=== PATIENT | female | born 1995 | race Caucasian/White ===

== ENCOUNTER → 2017-08-13 | Outpatient (REF) | payer BC, OTHER ==
[2017-08-13 15:07] LABS: APPEARANCE, URINE CLEAR (CLEAR); BACTERIA, URINE AUTO NEGATIVE (NEGATIVE); BILIRUBIN, URINE AUTO NEGATIVE (NEGATIVE); BLOOD, URINE BLOOD NEGATIVE (NEGATIVE); COLOR, URINE STRAW (YELLOW); GLUCOSE, URINE (UA) AUTO NEGATIVE (NEGATIVE); KETONE, URINE AUTO NEGATIVE (NEGATIVE); LEUKOCYTE ESTERASE, URINE AUTO NEGATIVE (NEGATIVE); NITRITE, URINE AUTO NEGATIVE (NEGATIVE); PROTEIN, URINE AUTO NEGATIVE (NEGATIVE); RBC, URINE AUTO 0 /HPF (0-3); SPECIFIC GRAVITY URINE AUTO 1.004 (1.002-1.035); SQUAMOUS EPITHELIAL CELL UR AU 1 /HPF (0-6); UROBILINOGEN, URINE AUTO 0.2 mg/dL (0.0-2.0); WBC, URINE AUTO 0 /HPF (0-3)
== END ==
LOC: M LAB REF 14:46
DX: N39.0 Urinary tract infection, site not specified (principal)
CPT/HCPCS: 81001

== ENCOUNTER → 2017-12-14 | Outpatient (REF) | payer OTHER ==
[2017-12-14 14:30] LABS: APPEARANCE, URINE CLEAR (CLEAR); BACTERIA, URINE AUTO NEGATIVE (NEGATIVE); BILIRUBIN, URINE AUTO NEGATIVE (NEGATIVE); BLOOD, URINE BLOOD NEGATIVE (NEGATIVE); COLOR, URINE STRAW (YELLOW); GLUCOSE, URINE (UA) AUTO NEGATIVE (NEGATIVE); KETONE, URINE AUTO NEGATIVE (NEGATIVE); LEUKOCYTE ESTERASE, URINE AUTO NEGATIVE (NEGATIVE); NITRITE, URINE AUTO NEGATIVE (NEGATIVE); PROTEIN, URINE AUTO NEGATIVE (NEGATIVE); RBC, URINE AUTO 0 /HPF (0-3); SPECIFIC GRAVITY URINE AUTO 1.001 (1.002-1.035); SQUAMOUS EPITHELIAL CELL UR AU 0 /HPF (0-6); UROBILINOGEN, URINE AUTO 0.2 mg/dL (0.0-2.0); WBC, URINE AUTO 0 /HPF (0-3)
== END ==
LOC: M LAB REF 12:59
DX: N39.0 Urinary tract infection, site not specified (principal)

== ENCOUNTER → 2018-02-12 | Outpatient (REF) | payer OTHER ==
[2018-02-12 18:36] LABS: APPEARANCE, URINE HAZY (CLEAR); BACTERIA, URINE AUTO 1+ (NEGATIVE); BILIRUBIN, URINE AUTO NEGATIVE (NEGATIVE); BLOOD, URINE BLOOD 1+ (NEGATIVE); COLOR, URINE YELLOW (YELLOW); GLUCOSE, URINE (UA) AUTO NEGATIVE (NEGATIVE); KETONE, URINE AUTO NEGATIVE (NEGATIVE); LEUKOCYTE ESTERASE, URINE AUTO 3+ (NEGATIVE); NITRITE, URINE AUTO NEGATIVE (NEGATIVE); PROTEIN, URINE AUTO NEGATIVE (NEGATIVE); RBC, URINE AUTO 2 /HPF (0-3); SPECIFIC GRAVITY URINE AUTO 1.001 (1.002-1.035); SQUAMOUS EPITHELIAL CELL UR AU 0 /HPF (0-6); UROBILINOGEN, URINE AUTO 0.2 mg/dL (0.0-2.0); WBC, URINE AUTO 27 /HPF (0-3)
== END ==
LOC: M LAB REF 16:39
DX: N39.0 Urinary tract infection, site not specified (principal)

== ENCOUNTER 2018-02-24 20:09 | Emergency (ER) | payer BC, OTHER ==
[2018-02-24 20:49] LABS: BASO # 0.1 10^3/uL (0.0-0.2); BASO % 0.6 % (0.0-1.0); EOS # 0.2 10^3/uL (0.0-0.50); EOS % 1.8 % (0.0-3.0); HEMATOCRIT 41.8 % (36.0-47.0); HEMOGLOBIN 13.7 g/dl (12.0-15.5); IMMATURE GRANULOCYTE % 0.3 % (0-3.0); LYMPH # 2.7 10^3/uL (1.5-6.5); LYMPH % 24.5 % (24.0-44.0); MEAN CORPUSCULAR HGB CONC 32.8 g/dl (32.0-36.5); MEAN CORPUSCULAR VOLUME 88.6 fl (80.0-96.0); MONO # 0.8 10^3/uL (0.0-0.8); MONO % 6.8 % (0.0-5.0); NEUTROPHILS # 7.4 10^3/uL (1.8-7.7); PLATELET COUNT, AUTOMATED 436 10^3/uL (150-450); RED BLOOD COUNT 4.72 10^6/uL (4.00-5.40); RED CELL DISTRIBUTION WIDTH 11.6 % (11.5-14.5); WHITE BLOOD COUNT 11.2 10^3/uL (4.0-10.0)
[2018-02-24 20:55] LABS: KETONE, URINE AUTO RFX NEGATIVE (NEGATIVE); LEUKOCYTE ESTERASE UR AUTO RFX NEGATIVE (NEGATIVE); MUCUS, URINE RFX SMALL (NEGATIVE); NITRITE, URINE AUTO RFX NEGATIVE (NEGATIVE); RBC, URINE AUTO RFX 1 /HPF (0-3); SPECIFIC GRAVITY UR AUTO RFX 1.009 (1.002-1.035); SQUAM EPITHELIAL CELL UR AURFX 1 /HPF (0-6); WBC, URINE AUTO RFX 0 /HPF (0-3)
[2018-02-24 21:06] LABS: CONTROL LINE HCG INT CTR LINE PRESENT; HCG, SERUM QUALITATIVE NEGATIVE (NEGATIVE)
[2018-02-24 21:12] LABS: ANION GAP 8 MEQ/L (8-16); BLOOD UREA NITROGEN 5 MG/DL (7-18); CALCIUM LEVEL 9.8 MG/DL (8.5-10.1); CARBON DIOXIDE LEVEL 27 MEQ/L (21-32); CHLORIDE LEVEL 106 MEQ/L (98-107); CREATININE FOR GFR 0.72 MG/DL (0.55-1.30); GLOMERULAR FILTRATION RATE > 60.0 (>60); GLUCOSE, FASTING 102 MG/DL (70-100); POTASSIUM SERUM 4.1 MEQ/L (3.5-5.1); SODIUM LEVEL 141 MEQ/L (136-145)
[2018-02-24] MEDS: NS 1,000 ML IV (21:29)
[2018-02-24] MEDS: ONDANSETRON 4MG/2ML VIAL (J2405) IV (21:29)
== END 2018-02-24 22:16 | disposition home or self-care (01) ==
LOC: M ED 20:09
DX: R11.0 Nausea (principal); R19.7 Diarrhea, unspecified; Z87.448 Personal history of other diseases of urinary system
CPT/HCPCS: J2405

== ENCOUNTER → 2018-02-25 | Outpatient (REF) | payer OTHER | LOC: M LAB REF 09:54 | DX: R19.7 Diarrhea, unspecified (principal) ==

== ENCOUNTER → 2018-03-25 | Outpatient (CLI) | payer BC, OTHER | LOC: M RAD 07:37 | DX: N30.90 Cystitis, unspecified without hematuria (principal) | CPT/HCPCS: 76775 ==

== ENCOUNTER → 2018-03-28 | Outpatient (REF) | payer OTHER | LOC: M SFHCCAPE 10:35 | DX: R19.7 Diarrhea, unspecified (principal) ==

== ENCOUNTER 2018-04-20 13:25 | Emergency (ER) | payer BC, OTHER ==
[~2018-04-20] VITALS: Ht 167.6 cm; Wt 72.7 kg
[~2018-04-20 13:25] MED LIST: FLAG500T PO; HYDR1SOL PO; TRINTAB PO; ZOFR4TAB14 PO
[2018-04-20] MEDS ORDERED: VANC250C2 (13:31)
[2018-04-20] MEDS ORDERED: NS 1,000 ML IV ONE (14:30)
[2018-04-20] MEDS ORDERED: METOCLOPRAMIDE INJ 10MG/2ML VIAL (J2765) IV ONE (14:30)
[2018-04-20 14:49] LABS: BASO # 0.1 10^3/uL (0.0-0.2); BASO % 0.8 % (0.0-1.0); EOS # 0.1 10^3/uL (0.0-0.50); EOS % 0.9 % (0.0-3.0); HEMATOCRIT 36.2 % (36.0-47.0); HEMOGLOBIN 12.1 g/dl (12.0-15.5); LYMPH # 2.2 10^3/uL (1.5-6.5); LYMPH % 33.6 % (24.0-44.0); MEAN CORPUSCULAR HEMOGLOBIN 29.8 pg (27.0-33.0); MEAN CORPUSCULAR HGB CONC 33.4 g/dl (32.0-36.5); MEAN CORPUSCULAR VOLUME 89.2 fl (80.0-96.0); MONO # 0.6 10^3/uL (0.0-0.8); MONO % 8.5 % (0.0-5.0); NEUTROPHILS # 3.6 10^3/uL (1.8-7.7); NEUTROPHILS % 55.9 % (36.0-66.0); PLATELET COUNT, AUTOMATED 364 10^3/uL (150-450); RED BLOOD COUNT 4.06 10^6/uL (4.00-5.40); WHITE BLOOD COUNT 6.5 10^3/uL (4.0-10.0)
[2018-04-20] MEDS: GASTROGRAFIN SOLUTION 30ML PO SCH ×2 (15:01→15:15)
[2018-04-20 15:18] LABS: ALBUMIN 4.2 GM/DL (3.2-5.2); ALT/SGPT 30 U/L (12-78); BILIRUBIN,TOTAL 0.3 MG/DL (0.2-1.0); BLOOD UREA NITROGEN 9 MG/DL (7-18); C REACTIVE PROTEIN QUANTITATIV 1.27 MG/DL (0.00-0.30); CALCIUM LEVEL 9.2 MG/DL (8.5-10.1); CARBON DIOXIDE LEVEL 29 MEQ/L (21-32); CHLORIDE LEVEL 105 MEQ/L (98-107); CREATININE FOR GFR 0.72 MG/DL (0.55-1.30); GLOMERULAR FILTRATION RATE > 60.0 (>60); GLUCOSE, FASTING 71 MG/DL (70-100); LIPASE 91 U/L (73-393); POTASSIUM SERUM 3.8 MEQ/L (3.5-5.1); SODIUM LEVEL 139 MEQ/L (136-145); TOTAL PROTEIN 7.8 GM/DL (6.4-8.2)
[2018-04-20] MEDS ORDERED: ISOVUE-370 76% 100ML VIAL (Q9967) As Ordered ONE (16:05)
--- NOTE | 2018-04-20 16:59 | REP ---
Clinical: Lower abdominal pain. Technique: Axial contrast enhanced images from the lung bases to the pubic symphysis using oral (per protocol) and 100 ml Isovue 370 intravenous contrast material. Findings: Lung bases are clear. Visualized heart and pericardium normal. Liver, spleen, pancreas, gallbladder, bilateral adrenal glands and kidneys are normal. The enteric system is without obstruction or acute inflammatory process. The appendix is identified and measures up to 6 mm which is within normal range. Pelvis demonstrates normal bladder and age-appropriate uterus/adnexa. No ascites. No free air. No adenopathy. Abdominal aorta and vasculature appears normal. Musculoskeletal structures are intact. Impression: No obvious acute abdominopelvic pathology appreciated. Electronically Signed by Clifton Nation MD 04/20/2018 04:51 P
[2018-04-20 17:03] LABS: URINE PREG TEST NEGATIVE (NEGATIVE)
[2018-04-20 17:04] LABS: APPEARANCE, URINE CLEAR (CLEAR); BACTERIA, URINE AUTO NEGATIVE (NEGATIVE); BILIRUBIN, URINE AUTO NEGATIVE (NEGATIVE); BLOOD, URINE BLOOD NEGATIVE (NEGATIVE); COLOR, URINE COLORLESS (YELLOW); GLUCOSE, URINE (UA) AUTO NEGATIVE (NEGATIVE); KETONE, URINE AUTO NEGATIVE (NEGATIVE); LEUKOCYTE ESTERASE, URINE AUTO NEGATIVE (NEGATIVE); NITRITE, URINE AUTO NEGATIVE (NEGATIVE); PROTEIN, URINE AUTO NEGATIVE (NEGATIVE); RBC, URINE AUTO 1 /HPF (0-3); SPECIFIC GRAVITY URINE AUTO 1.025 (1.002-1.035); SQUAMOUS EPITHELIAL CELL UR AU 0 /HPF (0-6); UROBILINOGEN, URINE AUTO 0.2 mg/dL (0.0-2.0); WBC, URINE AUTO 0 /HPF (0-3)
[2018-04-20] MEDS ORDERED: DIFI200T PO (17:18)
[2018-04-20 17:40] VITALS: BP 116/57
== END 2018-04-20 17:43 | disposition home or self-care (01) ==
LOC: M ED 13:25
DX: A04.71 Enterocolitis due to Clostridium difficile, recurrent (principal); Z86.19 Personal history of other infectious and parasitic diseases
CPT/HCPCS: 36415; 74177; 80053; 81001; 81025; 83690; 84703; 85025; 86140; 87507; 96374; 99284; J2765; Q9963; Q9967

== ENCOUNTER → 2018-05-08 | Outpatient (REF) | payer OTHER ==
[~2018-05-08] MED LIST changes: +DIFI200T PO; +VANC250C2
== END ==
LOC: M SFHCADAM 10:45
PROVIDERS: ATTEND Physician Assistant
DX: A04.71 Enterocolitis due to Clostridium difficile, recurrent (principal)

== ENCOUNTER → 2018-06-06 | Outpatient (REF) | payer OTHER ==
[2018-06-06 14:17] LABS: CHLAMYDIA DNA AMPLIFICATION NEGATIVE (NEGATIVE); GC DNA AMPLIFICATION NEGATIVE (NEGATIVE)
[2018-06-12 19:10] LABS: HPV LOW VOL RFLX Negative (Negative)
== END ==
LOC: M SFHCADAM 12:17
PROVIDERS: ATTEND Physician Assistant
DX: Z11.8 Encounter for screening for other infectious and parasitic diseases (principal); Z12.4 Encounter for screening for malignant neoplasm of cervix
CPT/HCPCS: 87491; 87591; 87624; G0123

== ENCOUNTER → 2019-06-08 | Outpatient (REF) | payer BC, OTHER ==
[~2019-06-08] MED LIST changes: -VANC250C2; +VANC250C3
[2019-06-08 12:25] LABS: INFLUENZA A AMPLIFICATION NEGATIVE (NEGATIVE); INFLUENZA B AMPLIFICATION NEGATIVE (NEGATIVE)
== END ==
LOC: M LAB REF 10:30
PROVIDERS: ATTEND Physician Assistant Medical
DX: R50.9 Fever, unspecified (principal)

== ENCOUNTER → 2019-07-01 | Outpatient (REF) | payer OTHER ==
[2019-07-01 13:46] LABS: BASO % 0.4 % (0.0-1.0); EOS # 0.1 10^3/uL (0.0-0.5); EOS % 0.6 % (0.0-3.0); HEMATOCRIT 40.7 % (36.0-47.0); HEMOGLOBIN 13.3 g/dl (12.0-15.5); LYMPH # 2.5 10^3/uL (1.5-5.0); LYMPH % 24.1 % (24.0-44.0); MEAN CORPUSCULAR HEMOGLOBIN 29.7 pg (27.0-33.0); MEAN CORPUSCULAR HGB CONC 32.7 g/dl (32.0-36.5); MEAN CORPUSCULAR VOLUME 90.8 fl (80.0-96.0); MONO # 0.5 10^3/uL (0.0-0.8); MONO % 5.2 % (0.0-5.0); NEUTROPHILS # 7.2 10^3/uL (1.5-8.5); NEUTROPHILS % 69.4 % (36.0-66.0); PLATELET COUNT, AUTOMATED 463 10^3/uL (150-450); RED BLOOD COUNT 4.48 10^6/uL (4.00-5.40); WHITE BLOOD COUNT 10.4 10^3/uL (4.0-10.0)
[2019-07-01 14:23] LABS: ALBUMIN 4.1 GM/DL (3.2-5.2); ALT/SGPT 25 U/L (12-78); BILIRUBIN,TOTAL 0.4 MG/DL (0.2-1.0); BLOOD UREA NITROGEN 6 MG/DL (7-18); CALCIUM LEVEL 9.7 MG/DL (8.5-10.1); CARBON DIOXIDE LEVEL 26 MEQ/L (21-32); CHLORIDE LEVEL 106 MEQ/L (98-107); CREATININE FOR GFR 0.61 MG/DL (0.55-1.30); GLOMERULAR FILTRATION RATE > 60.0 (>60); GLUCOSE, FASTING 86 MG/DL (70-100); POTASSIUM SERUM 4.7 MEQ/L (3.5-5.1); SODIUM LEVEL 138 MEQ/L (136-145); TOTAL PROTEIN 8.1 GM/DL (6.4-8.2)
== END ==
LOC: M SFHCADAM 11:42
PROVIDERS: ATTEND Physician Assistant
DX: R21 Rash and other nonspecific skin eruption (principal)

== ENCOUNTER → 2019-07-14 | Outpatient (REF) | payer OTHER ==
[2019-07-14 11:53] LABS: HEMATOCRIT 40.9 % (36.0-47.0); HEMOGLOBIN 13.4 g/dl (12.0-15.5); MEAN CORPUSCULAR HEMOGLOBIN 29.5 pg (27.0-33.0); MEAN CORPUSCULAR HGB CONC 32.8 g/dl (32.0-36.5); MEAN CORPUSCULAR VOLUME 89.9 fl (80.0-96.0); PLATELET COUNT, AUTOMATED 425 10^3/uL (150-450); RED BLOOD COUNT 4.55 10^6/uL (4.00-5.40); WHITE BLOOD COUNT 10.1 10^3/uL (4.0-10.0)
[2019-07-14 12:46] LABS: HEPATITIS B SURFACE ANTIGEN NEGATIVE (NEGATIVE); HEPATITIS C VIRUS ABY INDEX 0.1 INDEX (<0.8); HIV 1&2 SCREEN CENTAUR NEGATIVE (NEGATIVE); RUBELLA IgG QUALITATIVE IMMUNE (IMMUNE)
[2019-07-14 14:40] LABS: CHLAMYDIA DNA AMPLIFICATION NEGATIVE (NEGATIVE); GC DNA AMPLIFICATION NEGATIVE (NEGATIVE)
== END ==
LOC: M PLALAB 10:20
PROVIDERS: ATTEND Advanced Practice Midwife
DX: Z34.01 Encounter for supervision of normal first pregnancy, first trimester (principal)

== ENCOUNTER 2019-08-09 20:31 | Observation (INO) | payer BC, OTHER ==
[~2019-08-09] VITALS: Ht 167.6 cm; Wt 83.8 kg
[2019-08-09] MEDS ORDERED: MULTTAB20 PO (20:46)
[2019-08-09 21:40] LABS: BASO # 0.1 10^3/uL (0.0-0.2); BASO % 0.6 % (0.0-1.0); EOS # 0.2 10^3/uL (0.0-0.5); EOS % 1.8 % (0.0-3.0); HEMATOCRIT 40.8 % (36.0-47.0); HEMOGLOBIN 13.4 g/dl (12.0-15.5); LYMPH # 3.1 10^3/uL (1.5-5.0); LYMPH % 30.6 % (24.0-44.0); MEAN CORPUSCULAR HEMOGLOBIN 29.5 pg (27.0-33.0); MEAN CORPUSCULAR HGB CONC 32.8 g/dl (32.0-36.5); MEAN CORPUSCULAR VOLUME 89.9 fl (80.0-96.0); MONO # 0.5 10^3/uL (0.0-0.8); MONO % 5.2 % (0.0-5.0); NEUTROPHILS # 6.2 10^3/uL (1.5-8.5); NEUTROPHILS % 61.5 % (36.0-66.0); PLATELET COUNT, AUTOMATED 378 10^3/uL (150-450); RED BLOOD COUNT 4.54 10^6/uL (4.00-5.40); WHITE BLOOD COUNT 10.1 10^3/uL (4.0-10.0)
[2019-08-09] MEDS ORDERED: NS 1,000 ML IV ONE ×2 (22:00→22:08)
[2019-08-09 22:05] LABS: BLOOD UREA NITROGEN 9 MG/DL (7-18); CALCIUM LEVEL 9.7 MG/DL (8.5-10.1); CARBON DIOXIDE LEVEL 27 MEQ/L (21-32); CHLORIDE LEVEL 106 MEQ/L (98-107); CREATININE FOR GFR 0.61 MG/DL (0.55-1.30); GLOMERULAR FILTRATION RATE > 60.0 (>60); GLUCOSE, FASTING 96 MG/DL (70-100); HCG, SERUM QUANTITATIVE 1965 MIU/ML; POTASSIUM SERUM 4.2 MEQ/L (3.5-5.1); SODIUM LEVEL 138 MEQ/L (136-145)
--- NOTE | 2019-08-09 22:15 | REPVR ---
PROCEDURE INFORMATION: Exam: US First Trimester, Transabdominal Exam date and time: 08/09/2019 8:58 PM Age: 24 years old Clinical indication: Lmp or gestational age (in weeks): 12; Other: Vag bleeding; ; Additional info: Vaginal bleeding TECHNIQUE: Imaging protocol: Real-time transabdominal obstetrical ultrasound of the maternal pelvis and a first trimester , less than 14 weeks 0 days, with image documentation. COMPARISON: No relevant prior studies available. FINDINGS: GESTATION: Gestation: See "Uterus" finding. MATERNAL: Uterus: The uterus measures 8.0 cm in its cephalocaudad dimension and 4.5 x 4.7 cm in its AP and lateral dimensions transabdominal. The endometrium is heterogeneous and measures 12 mm. No intrauterine gestational sac. Cervix: Unremarkable. Right adnexa: The right ovary measures 2.6 x 1.4 x 3.0 cm and demonstrates normal blood flow. Left adnexa: The left ovary measures 2.4 x 2.0 x 1.3 cm and demonstrates normal blood flow. Intraperitoneal: No intraperitoneal free fluid. IMPRESSION: 1. No intrauterine gestational sac is identified. Findings may reflect recent spontaneous AB. Ectopic is not excluded. Serial beta hCG levels may be of benefit for further evaluation. The endometrium is heterogeneous and within normal limits for thickness measuring 12 mm. 2. Otherwise negative pelvic sonogram. Electronically signed by: Jared Stearns On 08/09/2019 22:15:30 PM
[2019-08-09 22:57] LABS: HEMATOCRIT 35.9 % (36.0-47.0); HEMOGLOBIN 11.7 g/dl (12.0-15.5)
[2019-08-10 02:48] LABS: HEMATOCRIT 35.4 % (36.0-47.0); HEMOGLOBIN 12.1 g/dl (12.0-15.5)
[2019-08-10 03:00] VITALS: BP 130/77
[2019-08-10] MEDS ORDERED: LR 1,000 ML IV SCH (04:30)
[2019-08-10 06:28] LABS: HEMATOCRIT 33.2 % (36.0-47.0); MEAN CORPUSCULAR HEMOGLOBIN 29.9 pg (27.0-33.0); MEAN CORPUSCULAR HGB CONC 33.1 g/dl (32.0-36.5); MEAN CORPUSCULAR VOLUME 90.2 fl (80.0-96.0); PLATELET COUNT, AUTOMATED 318 10^3/uL (150-450); RED BLOOD COUNT 3.68 10^6/uL (4.00-5.40); WHITE BLOOD COUNT 10.9 10^3/uL (4.0-10.0)
[2019-08-10 08:00] VITALS: BP 117/60
--- NOTE | 2019-08-10 09:38 | HPEPDOC ---
General Date of Admission Aug 10, 2019 at 01:10 Date of Service: Aug 10, 2019 Attending Physician: WILLIAM ESCALANTE MD. Chief Complaint The patient is a 24-year-old female admitted who presented at 11 weeks with heavy vaginal bleeding, was diagnosed with a complete and was admitted for observation Source: Patient Exam Limitations: No limitations History of Present Illness Reason 24-year-old 1 who presented from the ER with heavy vaginal bleeding. She was evaluated and was noted to have a empty uterus and moderate a mount of vaginal bleeding.Consulting and during my evaluation, there is large amounts tissue cervical os which was removed and sent to pathology. There was minimal bleeding following removal of this tissue. Patient was orthostatic, and for that reason was admitted overnight for observation. Home Medications Scheduled No122/Iron/Folic Acid ( Multi Tablet) 1 Each Tablet, 1 TAB PO DAILY, (Reported) Allergies Coded Allergies: No Known Allergies (Unverified , 08/09/19) Family History Significant Family History: Asthma, Diabetes, Hypertension Social History * Smoker: Denies Alcohol: Denies Psychosocial History: No pertinent psych hx A-FIB/CHADSVASC A-FIB History Current/History of A-Fib/PAF?: No Current PO Anticoag Therapy: No Physical Examination Other physical findings Pelvic exam large amounts of clot which was removed from the vaginal vault was approximately 3 cm tissue cervical os which was teased and removed. No further bleeding Vital Signs Vital Signs Date Time Temp Pulse Resp B/P (MAP) Pulse Ox O2 Delivery O2 Flow Rate FiO2 08/10/19 08:00 98.0 108 16 117/60 (79) 98 Room Air Laboratory Data Labs 24H Laboratory Tests 2 08/09/19 21:12: Immature Granulocyte % (Auto) 0.3, Neutrophils (%) (Auto) 61.5, Lymphocytes (%) (Auto) 30.6, Monocytes (%) (Auto) 5.2H, Eosinophils (%) (Auto) 1.8, Basophils (%) (Auto) 0.6, Neutrophils # (Auto) 6.2, Lymphocytes # (Auto) 3.1, Monocytes # (Auto) 0.5, Eosinophils # (Auto) 0.2, Basophils # (Auto) 0.1, Nucleated Red Blood Cells % (auto) 0.0, Anion Gap 5L, Glomerular Filtration Rate > 60.0, Calcium Level 9.7, Human Chorionic Gonadotropin, Quant 1965 08/09/19 21:19: Urine Color COLORLESS, Urine Appearance CLEAR, Urine pH 6.0, Urine Specific [place] 1.001L, Urine Protein NEGATIVE, Urine Glucose (UA) NEGATIVE, Urine Ketones NEGATIVE, Urine Blood 3+H, Urine Nitrite NEGATIVE, Urine Bilirubin N EGATIVE, Urine Urobilinogen 0.2, Urine Leukocyte Esterase NEGATIVE, Urine WBC (Auto) 0, Urine RBC (Auto) 1, Urine Hyaline Casts (Auto) 0, Urine Bacteria (Auto) NEGATIVE, Urine Squamous Epithelial Cells 0, Urine Sperm (Auto) 08/10/19 05:56: Nucleated Red Blood Cells % (auto) 0.0 CBC/BMP Laboratory Tests 08/09/19 21:12 08/09/19 22:52 08/10/19 02:43 08/10/19 05:56 Assessment/Plan 22-year-old 1, status post complete . Admitted for observation secondary to orthostatic following Plan / VTE VTE Prophylaxis Ordered?: No Plan IVF: Continue Diet: Continue Current Activity: Encourage Ambulation WILLIAM ESCALANTE MD. Aug 10, 2019 09:38
== END 2019-08-10 10:45 | disposition home or self-care (01) ==
LOC: M ED 20:31 → M ED INP 08-10 01:10 → ENRESERV 08-10 02:03 → M OBS 08-10 02:45
PROVIDERS: ADMIT Obstetrics & Gynecology; ATTEND Obstetrics & Gynecology
DX: O03.9 Complete or unspecified spontaneous abortion without complication (principal); I95.9 Hypotension, unspecified
CPT/HCPCS: 36415; 36430; 76801; 80048; 81001; 84702; 85014; 85018; 85025; 85027; 86850; 86900; 86901; 86920; 88305; 93041; 99285; P9016

== ENCOUNTER → 2019-08-19 | Outpatient (REF) | payer OTHER ==
[~2019-08-19] MED LIST changes: +MULTTAB20 PO
[2019-08-19 12:45] LABS: BASO % 0.5 % (0.0-1.0); EOS # 0.1 10^3/uL (0.0-0.5); EOS % 1.9 % (0.0-3.0); HEMATOCRIT 36.8 % (36.0-47.0); HEMOGLOBIN 12.4 g/dl (12.0-15.5); LYMPH # 2.2 10^3/uL (1.5-5.0); LYMPH % 30.6 % (24.0-44.0); MEAN CORPUSCULAR HEMOGLOBIN 30.7 pg (27.0-33.0); MEAN CORPUSCULAR HGB CONC 33.7 g/dl (32.0-36.5); MEAN CORPUSCULAR VOLUME 91.1 fl (80.0-96.0); MONO # 0.4 10^3/uL (0.0-0.8); MONO % 5.7 % (0.0-5.0); NEUTROPHILS # 4.5 10^3/uL (1.5-8.5); NEUTROPHILS % 61.2 % (36.0-66.0); PLATELET COUNT, AUTOMATED 426 10^3/uL (150-450); RED BLOOD COUNT 4.04 10^6/uL (4.00-5.40); WHITE BLOOD COUNT 7.3 10^3/uL (4.0-10.0)
[2019-08-19 12:49] LABS: BLOOD UREA NITROGEN 11 MG/DL (7-18); CALCIUM LEVEL 9.5 MG/DL (8.5-10.1); CARBON DIOXIDE LEVEL 28 MEQ/L (21-32); CHLORIDE LEVEL 107 MEQ/L (98-107); CREATININE FOR GFR 0.78 MG/DL (0.55-1.30); GLOMERULAR FILTRATION RATE > 60.0 (>60); GLUCOSE, FASTING 93 MG/DL (70-100); POTASSIUM SERUM 5.1 MEQ/L (3.5-5.1); SODIUM LEVEL 140 MEQ/L (136-145)
== END ==
LOC: M SFHCADAM 10:16
PROVIDERS: ATTEND Physician Assistant
DX: O03.9 Complete or unspecified spontaneous abortion without complication (principal); N93.9 Abnormal uterine and vaginal bleeding, unspecified

== ENCOUNTER → 2019-08-20 | Outpatient (REF) | payer OTHER | LOC: M PLALAB 08:47 | PROVIDERS: ATTEND Obstetrics & Gynecology | DX: O03.9 Complete or unspecified spontaneous abortion without complication (principal) ==

== ENCOUNTER → 2019-08-26 | Outpatient (CLI) | payer BC, OTHER | LOC: M LABSMTC 12:36 | PROVIDERS: ATTEND Family Medicine | DX: Z11.59 Encounter for screening for other viral diseases (principal) ==

== ENCOUNTER → 2020-08-03 | Outpatient (REF) | payer OTHER ==
[2020-08-03 14:05] LABS: HEMATOCRIT 41.7 % (36.0-47.0); HEMOGLOBIN 13.5 g/dl (12.0-15.5); MEAN CORPUSCULAR HEMOGLOBIN 29.3 pg (27.0-33.0); MEAN CORPUSCULAR HGB CONC 32.4 g/dl (32.0-36.5); MEAN CORPUSCULAR VOLUME 90.7 fl (80.0-96.0); PLATELET COUNT, AUTOMATED 415 10^3/uL (150-450); WHITE BLOOD COUNT 11.2 10^3/uL (4.0-10.0)
[2020-08-03 14:36] LABS: FREE T4 0.95 NG/DL (0.76-1.46)
[2020-08-03 15:17] LABS: HIV 1&2 SCREEN CENTAUR NEGATIVE (NEGATIVE)
== END ==
LOC: M PLALAB 09:55
PROVIDERS: ATTEND Advanced Practice Midwife
DX: Z36.89 Encounter for other specified antenatal screening (principal); Z3A.01 Less than 8 weeks gestation of pregnancy

== ENCOUNTER → 2020-09-09 | Outpatient (CLI) | payer OTHER | LOC: M PLALAB 15:25 | PROVIDERS: ATTEND Advanced Practice Midwife | DX: Z34.81 Encounter for supervision of other normal pregnancy, first trimester (principal) ==

== ENCOUNTER → 2020-09-17 | Outpatient (REF) | payer OTHER | LOC: M SFHCWAGY 12:52 | PROVIDERS: ATTEND Advanced Practice Midwife | DX: Z36.89 Encounter for other specified antenatal screening (principal); Z3A.01 Less than 8 weeks gestation of pregnancy ==

== ENCOUNTER → 2020-10-06 | Outpatient (CLI) | payer BC, OTHER | LOC: M LAB 17:11 | PROVIDERS: ATTEND Advanced Practice Midwife | DX: O26.899 Other specified pregnancy related conditions, unspecified trimester (principal) ==

== ENCOUNTER → 2020-10-20 | Outpatient (CLI) | payer BC ==
--- NOTE | 2020-10-20 10:44 | REP ---
INDICATION: ANATOMY/AMBER 03/19/21 COMPARISON: None. TECHNIQUE: Transabdominal obstetrical ultrasound with color Doppler evaluation. FINDINGS: Examination demonstrates a single live intrauterine in cephalic presentation. motion is identified by technologist. Placenta is noted posterior and grade 1 without evidence for placenta previa or abruption. Amniotic fluid volume is normal. Cervix measures 3.2 cm in length and appears closed.. Selected gestational age: 18 weeks 4 days with AMBER 03/19/2021. Gestational age by current measurements 18 weeks 5 days with AMBER 03/18/2021. FHR equals 153 beats per minute. Estimated weight 245 grams (43rdpercentile). Anatomical assessment demonstrates normal structures including facial profile, lungs, four-chamber heart, diaphragm, stomach, cord insertion/three-vessel cord, kidneys/bladder, and extremities. Limited evaluation of the cranial structures, facial features, cardiac ventricular outflow tracts and spine due to positioning. IMPRESSION: Single live intrauterine in cephalic presentation demonstrating appropriate estimated weight. Limited anatomical assessment warrants re-evaluation and follow-up. <Electronically signed by Clifton Nation > 10/20/20 [id number]
== END ==
LOC: M WHC 08:34
PROVIDERS: ATTEND Advanced Practice Midwife
DX: Z36.3 Encounter for antenatal screening for malformations (principal); O99.212 Obesity complicating pregnancy, second trimester; Z3A.18 18 weeks gestation of pregnancy

== ENCOUNTER → 2020-11-23 | Outpatient (CLI) | payer BC ==
[~2020-11-23] MED LIST changes: +ACET-683 PO; +COLA100C5 PO; +IBUP-1022 PO; +OMEP10CASR PO
== END ==
LOC: M WHC 08:56
PROVIDERS: ATTEND Advanced Practice Midwife
DX: Z36.2 Encounter for other antenatal screening follow-up (principal); Z3A.23 23 weeks gestation of pregnancy

== ENCOUNTER → 2020-12-09 | Outpatient (CLI) | payer BC, OTHER ==
[~2020-12-09] MED LIST changes: -ACET-683 PO; -COLA100C5 PO; -IBUP-1022 PO; -OMEP10CASR PO
[2020-12-09 13:35] LABS: HEMATOCRIT 34.9 % (36.0-47.0); HEMOGLOBIN 11.1 g/dl (12.0-15.5); MEAN CORPUSCULAR HEMOGLOBIN 28.8 pg (27.0-33.0); MEAN CORPUSCULAR HGB CONC 31.8 g/dl (32.0-36.5); MEAN CORPUSCULAR VOLUME 90.6 fl (80.0-96.0); PLATELET COUNT, AUTOMATED 342 10^3/uL (150-450); RED BLOOD COUNT 3.85 10^6/uL (4.00-5.40); WHITE BLOOD COUNT 10.9 10^3/uL (4.0-10.0)
[2020-12-09 15:04] LABS: GC DNA AMPLIFICATION NEGATIVE (NEGATIVE)
== END ==
LOC: M PLALAB 08:51
PROVIDERS: ATTEND Advanced Practice Midwife
DX: Z36.89 Encounter for other specified antenatal screening (principal); Z3A.21 21 weeks gestation of pregnancy

== ENCOUNTER 2021-02-05 16:23 | Emergency (ER) | payer BC, OTHER ==
[~2021-02-05] VITALS: Ht 167.6 cm; Wt 104.5 kg
[2021-02-05 16:23] VITALS: BP 122/78
--- OUTSIDE RECORDS SUMMARY | 2021-02-05 16:28 | CCD ---
Author Author [facility] Organization [facility] Address Unknown Phone Unavailable Care Team Providers Care Centrifugal Drier Operator Name Role Phone Julia Larsen Unavailable PROBLEMS Type Condition ICD9-CM Code [id number] Code Onset Dates Condition S tatus W/U Status Risk SNOMED Code Notes Problem Abdominal pain, epigastric 789.06 Active confirmed 99586702 Problem Rash and other nonspecific skin eruption 782.1 Active confirmed 561974350 Problem Other acne 706.1 Active confirmed 13730465 Problem Chronic migraine without aur a, without mention of intractable migraine without mention of status migrainosus 346.70 Active co nfirmed 684678920360370 Problem Asthma 493.90 Active confirmed 980114434 Problem Temporomandibular joint disorder (TMJ) 524.60 A ctive confirmed 53838216 Problem Episode of heavy vaginal bleeding N93.9 Active confirmed 378323678 Problem Supervision of other normal Z34.80 Ac tive confirm 811976439 Problem Other obesity due to excess calories E66.09 Act abdon confirmed 358900543 Problem Obesity complicating in third trimester O99.213 Active confirmed Problem Clostridium difficile diarrhea A04.72 Active c onfirmed 3299017177209 Problem Acid reflux K21.9 Active confirmed 11353498 9 Problem Allergic rhinitis, cause unspecified 477.9 Act abdon confirmed 58567873 Problem Obesity affecting in second trimester O9 9.212 Active confirmed 001710822744 Problem BMI 33.0-33.9,adult Z68.33 Active confirmed 113655682 Problem Obesity, unspecified E66.9 Active confirmed 082201682 Problem Obesity complicating in second trimester O99.212 Active confirmed 267054014547 ALLERGIES Allergen (clinical drug ingredient) Drug/Non Drug Allergy do cumented on EMR Reaction Allergy Type Onset Date Status Ortho Tri-Cyclen (28) made her feel depressed Drug Allergy Active amitriptyline Amitriptyline HCl([facility] Code:[address]-57) Rash Dr hooks Allergy Active ENCOUNTERS from 1997 to 2021-01-26 Encounter Location Date Provider Diagnosis [facility] [address] [phone] [place] [address] 07 Dec, 2020 Julia Larsen 28 weeks gestation o f Z3A.28 ; Obesity complicating in third trimester O99.213 ; Encounter for immunization Z23 and Encounter for supervision of low-risk first in third trimester Z34.03 IMMUNIZATIONS Vaccine Route Administration Date Status Varicella 0.5mL VariVax Unknown Dec 06, 2008 Administ ered RWJX-UGF-BDO 0.5mL (Pentacel) Unknown 1997 Ad ministered PGOV-WLR-CKR 0.5mL (Pentacel) Unknown Jan 12, 1998 Ad ministered HOEQ-RYI-SMY 0.5mL (Pentacel) Unknown Mar 08, 1998 Ad ministered TDAP Unknown Dec 08, 2008 Administered Gardasil IM Intramuscular Feb 27, 2012 Administered Varicella 0.5mL VariVax Unknown October 29, 2002 Administ ered DTAP 0.5mL Infanrix Unknown July 29, 1998 Administered Gardasil IM Intramuscular May 02, 2012 Administered Gardasil IM Intramuscular September 19, 2012 Administered TDAP 0.5mL Boostrix IM Intramuscular Dec 28, 2020 Administere d Hepatitis B Ped & Adol 0.5mL Engerix-B Unknown Jan 12, 1998 Administered Hepatitis B Ped & Adol 0.5mL Engerix-B Unknown May 25 998 Administered Hepatitis B Ped & Adol 0.5mL Engerix-B Unknown Mar 27 99 Administered Imm: IPV 0.5mL Polio Unknown October 29, 2002 Administere d MMR 0.5mL Unknown October 29, 2002 Administered MMR 0.5mL Unknown Mar 10, 1998 Administered HIB 0.5mL Unknown July 29, 1998 Administered DTAP 0.5mL Infanrix Unknown October 29, 2002 Administered SOCIAL HISTORY Tobacco Use: Social History Observation Description Date Details (start date - stop date) never smoker Sex Assigned At : Social History Observation Description Sex Assigned At Unknown Education: Question Answer Notes Level of Education: Finished High School Audit Question Answer Notes Total Score: 0 Interpretation: Alcohol Education Language: Question Answer Notes Languages spoken: Divehi Domestic Violence: Question Answer Notes Status: Single Drug and Alcohol Question Answer Notes Total Score: 0 Interpretation: No problems reported Alcohol Screening: Question Answer Notes Did you have a drink containing alcohol in the past year? No Points 0 Interpretation Negative Tobacco Use: Question Answer Notes Are you a: never smoker never smoker REASON FOR REFERRAL No Information VITAL SIGNS Weight 222.4 lbs Dec, Weight-kg 100.88 kg Dec, Height 66 in Dec, BMI 35.896 kg/m2 Dec, Blood pressure systolic 118 mm Hg Dec, Blood pressure diastolic 76 mm Hg Dec, MEDICATIONS Medication SIG (Take, Route, Frequency, Duration) Notes Start Da te End Date Status Complete 14-0.4 MG 1 tablet Orally Once a day for 30 day(s) Active Omeprazole 20 MG 1 capsule 30 minutes before morning meal Orally Once a day for 30 day(s) Dec, Active Benadryl Allergy 25 MG 1 tablet at bedtime as neede d Orally Once a day for 30 day(s) Jun, Not-Taking PROCEDURES from 1997 to 2021-01-26 Procedure Date Ordered Result Body Site Imm: Boostrix 0.5mL IM TDAP 2020-12-28 N/A RESULTS No Results REASON FOR VISIT 4 wk pn MEDICAL (GENERAL) HISTORY Type Description Date Medical History migraines - Dr. Adams in [place] Medical History asthma - exercise induced Medical History Echo 02/2013- normal LV size and systolic fx, No valvular abnormalities or cardaic defects. Medical History Recurrent UTIs Medical History C Diff. 02/25/2018 - treated with Flagyl x 14 days, 03/28 treated with Vanco x 10 days, 04/20 tretaed with Dificid x 14 days Surgical History tonsillectomy Hospitalization History surgery Goals Section No Information Health Concerns No Information MEDICAL EQUIPMENT No Information MENTAL STATUS No Information FUNCTIONAL STATUS No Information ASSESSMENTS Encounter Date Diagnosis Assessment Notes Treatment Notes Treatm ent Clinical Notes Dec, 28 weeks gestation of (ICD-10 - Z3A.28 ) Dec, Obesity complicating pregnan cy in third trimester (ICD-10 - O99.213) Dec, Encounter for immunization (ICD-10 - Z23) Dec, Encounter for supervision of low-risk first in third trimester (ICD-10 - Z34.03) PLAN OF TREATMENT Medication Medication Name Sig Start Date Stop Date Omeprazole 20 MG 1 capsule 30 minutes before morning meal Orally Once a day for 30 day(s) Dec, Next Appt Details 2-3 weeks Reason:Routine Provider Name:Julia Larsen, 2020-10-0 8 08:00:00 AM, [address], , [place], [address], Follow Up:2-3 weeksRoutine Insurance Providers Payer Name Payer Address Payer Phone Insured Name Patient Relati onship to Insured Coverage Start Date Coverage End Date [facility] [address] [facility] [id number] TYLER KENNY [id number]
--- OUTSIDE RECORDS SUMMARY | 2021-02-05 16:28 | CCD ---
Author Author [facility] Organization [facility] Address Unknown Phone Unavailable Care Team Providers Care Web Application Dev Specialist Name Role Phone Gloria Toscano Unavailable PROBLEMS Type Condition ICD9-CM Code [id number] Code Onset Dates Condition S tatus W/U Status Risk SNOMED Code Notes Problem Abdominal pain, epigastric 789.06 Active confirmed 84677263 Problem Rash and other nonspecific skin eruption 782.1 Active confirmed 685448520 Problem Other acne 706.1 Active confirmed 77029026 Problem Chronic migraine without aur a, without mention of intractable migraine without mention of status migrainosus 346.70 Active co nfirmed 797992016056661 Problem Allergic rhinitis, cause unspecified 477.9 Act abdon confirmed 95202181 Problem Clostridium difficile diarrhea A04.72 Active c onfirmed 1247230855837 Problem Episode of heavy vaginal bleeding N93.9 Active confirmed 108360117 Problem BMI 33.0-33.9,adult Z68.33 Active confirmed 050970697 Problem Asthma 493.90 Active confirmed 072265854 Problem Obesity, unspecified E66.9 Active confirmed 300354700 Problem Temporomandibular joint disorder (TMJ) 524.60 A ctive confirmed 43362236 Problem Supervision of other normal Z34.80 Ac tive confirm 484252635 Problem Other obesity due to excess calories E66.09 Act abdon confirmed 090696676 Problem Obesity affecting in second trimester O9 9.212 Active confirmed 981345331111 Problem Obesity complicating in second trimester O99.212 Active confirmed 933079696015 ALLERGIES Allergen (clinical drug ingredient) Drug/Non Drug Allergy do cumented on EMR Reaction Allergy Type Onset Date Status Ortho Tri-Cyclen (28) made her feel depressed Drug Allergy Active amitriptyline Amitriptyline HCl([facility] Code:[address]-92) Rash Dr hooks Allergy Active ENCOUNTERS from 1997 to 2020-11-12 Encounter Location Date Provider Diagnosis [facility] [address] [phone] [place] [address] [facility] Encounter for sup ervision of normal first , second trimester Z34.02 and 21 weeks gestation of Z3A.21 IMMUNIZATIONS Vaccine Route Administration Date Status Gardasil IM Intramuscular Feb 27, 2012 Administered Gardasil IM Intramuscular May 02, 2012 Administered Gardasil IM Intramuscular September 19, 2012 Administered NIZX-XDP-ALC 0.5mL (Pentacel) Unknown 1997 Ad ministered TDAP Unknown Dec 08, 2008 Administered Varicella 0.5mL VariVax Unknown October 29, 2002 Administ ered Varicella 0.5mL VariVax Unknown Dec 06, 2008 Administ ered DTAP 0.5mL Infanrix Unknown July 29, 1998 Administered BCIN-LHJ-LZE 0.5mL (Pentacel) Unknown Jan 12, 1998 Ad ministered OWLL-WFU-KTJ 0.5mL (Pentacel) Unknown Mar 08, 1998 Ad ministered Hepatitis B Ped & Adol 0.5mL Engerix-B Unknown Jan 12, 1998 Administered Hepatitis B Ped & Adol 0.5mL Engerix-B Unknown May 25 998 Administered Hepatitis B Ped & Adol 0.5mL Engerix-B Unknown Mar 27 997 Administered Imm: IPV 0.5mL Polio Unknown October [...] Education Language: Question Answer Notes Languages spoken: Zimbabwean Domestic Violence: Question Answer Notes Status: Single Sexual Hx: Question Answer Notes Had sex in the last 12 months (vaginal, oral, or anal)? Yes LMP: 01/2018 Have you ever had an STD? No with Men only Use protection? Yes How often? Half the time Drug and Alcohol Question Answer Notes Total Score: 0 Interpretation: No problems reported Alcohol Screening: Question Answer Notes Did you have a drink containing alcohol in the past year? No Points 0 Interpretation Negative Tobacco Use: Question Answer Notes Are you a: never smoker never smoker REASON FOR REFERRAL No Information VITAL SIGNS Weight 212 lbs Oct, Weight-kg 96.16 kg Oct, Height 66 in Oct, BMI 34.218 kg/m2 Oct, Blood pressure systolic 108 mm Hg Oct, Blood pressure diastolic 72 mm Hg Oct, MEDICATIONS Medication SIG (Take, Route, Frequency, Duration) Notes Start Da te End Date Status Complete 14-0.4 MG 1 tablet Orally Once a day for 30 day(s) Active Benadryl Allergy 25 MG 1 tablet at bedtime as neede d Orally Once a day for 30 day(s) Jun, Not-Taking PROCEDURES No Information RESULTS No Results REASON FOR VISIT 4WK PN MEDICAL (GENERAL) HISTORY Type Description Date Medical History migraines - Dr. Adams in [place] Medical History asthma - exercise induced Medical [...] Notes Treatment Notes Treatm ent Clinical Notes Oct, Encounter for supervision of normal first , second trimester (ICD-10 - Z34.02) Oct, 21 weeks gestation of (ICD-10 - Z3A.21 ) PLAN OF TREATMENT Treatment Notes Test Name Order Date [facility] OBS FOLLOW UP OR REPEAT 2020-11-11 CBC - Complete Blood Count 2020-11-11 Type and Screen (D Rh Antibody Screen) 2020-11-11 Glucose Challenge Test 1 Hour 2020-11-11 AB SCREEN (INDIRECT EVERT)GEL Antibody Screen 2020-10 CHLAMYDIA & GC DNA AMPLIFICAT 2020-11-11 Next Appt Details 4 Weeks Reason:- Routine follow up Provider Name:Gloria Toscano, 2020-12-09 09:00:00 AM, [address], , [place], [address], Follow Up:4 Weeks- Routine follow up Insurance Providers Payer Name Payer Address Payer Phone Insured Name Patient Relati onship to Insured Coverage Start Date Coverage End Date [facility] [address] [facility] [id number] TYLER KENNY [id number]
--- OUTSIDE RECORDS SUMMARY | 2021-02-05 16:28 | CCD ---
Author Author [facility] Organization [facility] Address Unknown Phone Unavailable Care Team Providers Care Take Out Waiter/Waitress Name Role Phone Adelia Gee Unavailable PROBLEMS Type Condition ICD9-CM Code LBC06-DV Code Onset Dates Condition S tatus W/U Status Risk SNOMED Code Notes Problem Rash and other nonspecific skin eruption 782.1 Active confirmed 168010012 Problem Chronic migraine without aur a, without mention of intractable migraine without mention of status migrainosus 346.70 Active co nfirmed 841393009490275 Problem Abdominal pain, epigastric 789.06 Active confirmed 83242994 Problem Temporomandibular joint disorder (TMJ) 524.60 A ctive confirmed 89466569 Problem Other acne 706.1 Active confirmed 58124695 Problem Clostridium difficile diarrhea A04.72 Active c onfirmed 0802919959838 Problem Episode of heavy vaginal bleeding N93.9 Active confirmed 628191572 Problem Supervision of other normal Z34.80 Ac tive confirm 815293983 Problem Obesity, unspecified E66.9 Active confirmed 498099055 Problem Allergic rhinitis, cause unspecified 477.9 Act abdon confirmed 88594415 Problem Acid reflux K21.9 Active confirmed 36581563 9 Problem Asthma 493.90 Active confirmed 303431709 Problem Other obesity due to excess calories E66.09 Act abdon confirmed 167643548 Problem Obesity affecting in second trimester O9 9.212 Active confirmed 866264912035 Problem Obesity complicating in second trimester O99.212 Active confirmed 166221616242 Problem BMI 33.0-33.9,adult Z68.33 Active confirmed 170095472 ALLERGIES Allergen (clinical drug ingredient) Drug/Non Drug Allergy do cumented on EMR Reaction Allergy Type Onset Date Status Ortho Tri-Cyclen () made her feel depressed Drug Allergy Active amitriptyline Amitriptyline HCl([facility] Code:[address]-44) Rash Dr hooks Allergy Active ENCOUNTERS from 1997 to 2021-01-18 Encounter Location Date Provider Diagnosis [facility] [address] [phone] [place] [address] Dec, [facility] IMMUNIZATIONS Vaccine Route Administration Date Status Gardasil IM Intramuscular September 19, 2012 Administered Varicella 0.5mL VariVax Unknown October 29, 2002 Administ ered Varicella 0.5mL VariVax Unknown Dec 06, 2008 Administ ered XCOA-OGK-MUF 0.5mL (Pentacel) Unknown 1997 Ad ministered TDAP Unknown Dec 08, 2008 Administered Gardasil IM Intramuscular Feb 27, 2012 Administered Gardasil IM Intramuscular May 02, 2012 Administered DTAP 0.5mL Infanrix Unknown July 29, 1998 Administered ADES-RJL-CLV 0.5mL (Pentacel) Unknown Jan 12, 1998 Ad ministered FOUF-BPI-DKV 0.5mL (Pentacel) Unknown Mar 08, 1998 Ad ministered TDAP 0.5mL Boostrix IM Intramuscular Dec 28, [...] Education Language: Question Answer Notes Languages spoken: Turkish Domestic Violence: Question Answer Notes Status: Single Drug and Alcohol Question Answer Notes Total Score: 0 Interpretation: No problems reported Alcohol Screening: Question Answer Notes Did you have a drink containing alcohol in the past year? No Points 0 Interpretation Negative Tobacco Use: Question Answer Notes Are you a: never smoker never smoker REASON FOR REFERRAL No Information VITAL SIGNS No information MEDICATIONS Medication SIG (Take, Route, Frequency, Duration) [...] Information RESULTS No Results REASON FOR VISIT Complaints MEDICAL (GENERAL) HISTORY Type Description Date Medical History migraines - Dr. Adams in [place] Medical History asthma - exercise induced Medical [...] No Information FUNCTIONAL STATUS No Information ASSESSMENTS No Information PLAN OF TREATMENT Medication Medication Name Sig Start Date Stop Date Omeprazole 20 MG 1 capsule 30 minutes before morning meal Orally Once a day for 30 day(s) Dec, Next Appt Details Provider Name:Julia Arvizu Chava, 2020-10-0 8 08:00:00 AM, [address], , [place], [address], Insurance Providers Payer Name Payer Address Payer Phone Insured Name Patient Relati onship to Insured Coverage Start Date Coverage End Date [facility] [address] [facility] [id number] TYLER KENNY KALPESH [id number]
--- OUTSIDE RECORDS SUMMARY | 2021-02-05 16:28 | CCD ---
Author Author [facility] Organization [facility] Address Unknown Phone Unavailable Care Team Providers Care Equipment Service Technician Name Role Phone Gloria Toscano Unavailable PROBLEMS Type Condition ICD9-CM Code ZBS17-RD Code Onset Dates Condition S tatus W/U Status Risk SNOMED Code Notes Problem Abdominal pain, epigastric 789.06 Active confirmed 96351119 Problem Rash and other nonspecific skin eruption 782.1 Active confirmed 484914362 Problem Other acne 706.1 Active confirmed 95363711 Problem Chronic migraine without aur a, without mention of intractable migraine without mention of status migrainosus 346.70 Active co nfirmed [id number] Problem Asthma 493.90 Active confirmed 529013884 Problem Temporomandibular joint disorder (TMJ) 524.60 A ctive confirmed 11215452 Problem Episode of heavy vaginal bleeding N93.9 Active confirmed 334820372 Problem Supervision of other normal Z34.80 Ac tive confirm 002634670 Problem Other obesity due to excess calories E66.09 Act abdon confirmed 814965511 Problem Obesity complicating in third trimester O99.213 Active confirmed Problem Clostridium difficile diarrhea A04.72 Active c onfirmed 6954274458729 Problem Acid reflux K21.9 Active confirmed 36875368 9 Problem Allergic rhinitis, cause unspecified 477.9 Act abdon confirmed 46861823 Problem Obesity affecting in second trimester O9 9.212 Active confirmed 133721915027 Problem BMI 33.0-33.9,adult Z68.33 Active confirmed 069644082 Problem Obesity, unspecified E66.9 Active confirmed 502697838 Problem Obesity complicating in second trimester O99.212 Active confirmed 613161661054 ALLERGIES Allergen (clinical drug ingredient) Drug/Non Drug Allergy do cumented on EMR Reaction Allergy Type Onset Date Status Ortho Tri-Cyclen (28) made her feel depressed Drug Allergy Active amitriptyline Amitriptyline HCl([facility] Code:[address]-00) Rash Dr hooks Allergy Active ENCOUNTERS from 1997 to 2021-02-01 Encounter Location Date Provider Diagnosis [facility] [address] [phone] [place] [address] [facility] Obesity complicat ing in second trimester O99.212 and 25 weeks gestation of Z3A.25 IMMUNIZATIONS Vaccine Route Administration Date Status Varicella 0.5mL VariVax Unknown Dec 06, 2008 Administ ered GNHV-RDX-DWD 0.5mL (Pentacel) Unknown 1997 Ad ministered QYZW-KPX-FEJ 0.5mL (Pentacel) Unknown Jan 12, 1998 Ad ministered ERLG-KCX-XSJ 0.5mL (Pentacel) Unknown Mar 08, 1998 Ad [...] Education Language: Question Answer Notes Languages spoken: Hungarian Domestic Violence: Question Answer Notes Status: Single Drug and Alcohol Question Answer Notes Total Score: 0 Interpretation: No problems reported Alcohol Screening: Question Answer Notes Did you have a drink containing alcohol in the past year? No Points 0 Interpretation Negative Tobacco Use: Question Answer Notes Are you a: never smoker never smoker REASON FOR REFERRAL No Information VITAL SIGNS Weight 219 lbs Nov, Weight-kg 99.34 kg Nov, Height 66 in Nov, BMI 35.348 kg/m2 Nov, Blood pressure systolic 128 mm Hg Nov, Blood pressure diastolic 76 mm Hg Nov, MEDICATIONS Medication SIG (Take, Route, Frequency, Duration) Notes Start Da te End Date Status Omeprazole 20 MG 1 capsule 30 minutes before morning meal Orally Once a day for 30 day(s) Dec, Active Benadryl Allergy 25 MG 1 tablet at bedtime as neede d Orally Once a day for 30 day(s) Jun, Not-Taking Complete 14-0.4 MG 1 tablet Orally Once a day for 30 day(s) Active PROCEDURES No Information RESULTS No Results REASON FOR VISIT 4 WK PN MEDICAL (GENERAL) HISTORY Type Description Date Medical History migraines - Dr[place] Medical History asthma - exercise induced Medical [...] Notes Treatment Notes Treatm ent Clinical Notes Nov, 25 weeks gestation of (ICD-10 - Z3A.25 ) Nov, Obesity complicating pregnan cy in second trimester (ICD-10 - O99.212) PLAN OF TREATMENT Next Appt Details 3-4wks Reason:- Routine follow up Provider Name:Julia Larsen, 2020-10-2 2 08:00:00 AM, [address], , [place], [address], Follow Up:3-4wks- Routine follow up Insurance Providers Payer Name Payer Address Payer Phone Insured Name Patient Relati onship to Insured Coverage Start Date Coverage End Date [facility] [address] [facility] [id number] TYLER KENNY [id number]
--- OUTSIDE RECORDS SUMMARY | 2021-02-05 16:28 | CCD ---
Author Author [facility] Organization [facility] Address Unknown Phone Unavailable Care Team Providers Care Paper Gluing Operator Name Role Phone Julia Larsen Unavailable PROBLEMS Type Condition ICD9-CM Code COM32-WF Code Onset Dates Condition S tatus W/U Status Risk SNOMED Code Notes Problem Abdominal pain, epigastric 789.06 Active confirmed 26208621 Problem Rash and other nonspecific skin eruption 782.1 Active confirmed 186563221 Problem Other acne 706.1 Active confirmed 98372186 Problem Chronic migraine without aur a, without mention of intractable migraine without mention of status migrainosus 346.70 Active co nfirmed 945035859919686 Problem Asthma 493.90 Active confirmed 307309320 Problem Temporomandibular joint disorder (TMJ) 524.60 A ctive confirmed 51295463 Problem Episode of heavy vaginal bleeding N93.9 Active confirmed 772979804 Problem Supervision of other normal Z34.80 Ac tive confirm 726951906 Problem Other obesity due to excess calories E66.09 Act abdon confirmed 643414188 Problem Obesity complicating in third trimester O99.213 Active confirmed Problem Clostridium difficile diarrhea A04.72 Active c onfirmed 1085436038885 Problem Acid reflux K21.9 Active confirmed 18552619 9 Problem Allergic rhinitis, cause unspecified 477.9 Act abdon confirmed 65587563 Problem Obesity affecting in second trimester O9 9.212 Active confirmed 085522234933 Problem BMI 33.0-33.9,adult Z68.33 Active confirmed 354459757 Problem Obesity, unspecified E66.9 Active confirmed 018814377 Problem Obesity complicating in second trimester O99.212 Active confirmed 344818991767 ALLERGIES Allergen (clinical drug ingredient) Drug/Non Drug Allergy do cumented on EMR Reaction Allergy Type Onset Date Status Ortho Tri-Cyclen (28) made her feel depressed Drug Allergy Active amitriptyline Amitriptyline HCl([facility] Code:[address]-48) Rash Dr hooks Allergy Active ENCOUNTERS from 1997 to 2021-01-31 Encounter Location Date Provider Diagnosis [facility] [address] [facility] [phone] [place] [address] 08 Jan, 2021 Julia Larsen Obesity complicating in third trimester O99.213 and 32 weeks gestation of Z3A.32 IMMUNIZATIONS Vaccine Route Administration Date Status Gardasil IM Intramuscular September 19, 2012 Administered Varicella 0.5mL VariVax Unknown October 29, 2002 Administ ered Varicella 0.5mL VariVax Unknown Dec 06, 2008 Administ ered HYTB-UGG-FMW 0.5mL (Pentacel) Unknown 1997 Ad ministered TDAP Unknown Dec 08, 2008 Administered Gardasil IM Intramuscular Feb 27, 2012 Administered Gardasil IM Intramuscular May 02, 2012 Administered DTAP 0.5mL Infanrix Unknown July 29, 1998 Administered CMGE-QCA-SRX 0.5mL (Pentacel) Unknown Jan 12, 1998 Ad ministered VFTC-IPD-VII 0.5mL (Pentacel) Unknown Mar 08, 1998 Ad [...] Education Language: Question Answer Notes Languages spoken: Senegalese Domestic Violence: Question Answer Notes Status: Single Drug and Alcohol Question Answer Notes Total Score: 0 Interpretation: No problems reported Alcohol Screening: Question Answer Notes Did you have a drink containing alcohol in the past year? No Points 0 Interpretation Negative Tobacco Use: Question Answer Notes Are you a: never smoker never smoker REASON FOR REFERRAL No Information VITAL SIGNS Weight 227 lbs Jan, Weight-kg 102.97 kg Jan, Height 66 in Jan, BMI 36.639 kg/m2 Jan, Blood pressure systolic 120 mm Hg Jan, Blood pressure diastolic 74 mm Hg Jan, MEDICATIONS Medication SIG (Take, Route, Frequency, Duration) [...] Information RESULTS No Results REASON FOR VISIT 2 wk pn MEDICAL (GENERAL) HISTORY Type Description Date Medical History migraines - Dr. [place] in [place] Medical History asthma - exercise induced Medical [...] Notes Treatment Notes Treatm ent Clinical Notes Jan, Obesity complicating pregnan cy in third trimester (ICD-10 - O99.213) Jan, 32 weeks gestation of (ICD-10 - Z3A.32 ) PLAN OF TREATMENT Next Appt Details 2-3 weeks Reason: Provider Name:Julia Larsen 2020-10-2 2 08:00:00 AM, [address] [facility], , [place], [address], Follow Up:2-3 weeksPrenatal Insurance Providers Payer Name Payer Address Payer Phone Insured Name Patient Relati onship to Insured Coverage Start Date Coverage End Date [facility] [address] [facility] [id number] TYLER KENNY [id number]
--- OUTSIDE RECORDS SUMMARY | 2021-02-05 16:28 | CCD ---
Author Author [facility] Organization [facility] Address Unknown Phone Unavailable Care Team Providers Care Stamping Die Maker Name Role Phone Julia Larsen Unavailable PROBLEMS Type Condition ICD9-CM Code DMP05-XP Code Onset Dates Condition S tatus W/U Status Risk SNOMED Code Notes Problem Abdominal pain, epigastric 789.06 Active confirmed 36171991 Problem Rash and other nonspecific skin eruption 782.1 Active confirmed 717056429 Problem Other acne 706.1 Active confirmed 14652071 Problem Chronic migraine without aur a, without mention of intractable migraine without mention of status migrainosus 346.70 Active co nfirmed 665050969008332 Problem Asthma 493.90 Active confirmed 915750306 Problem Temporomandibular joint disorder (TMJ) 524.60 A ctive confirmed 85486583 Problem Episode of heavy vaginal bleeding N93.9 Active confirmed 650834992 Problem Supervision of other normal Z34.80 Ac tive confirm 084994637 Problem Other obesity due to excess calories E66.09 Act abdon confirmed 775148070 Problem Obesity complicating in third trimester O99.213 Active confirmed Problem Clostridium difficile diarrhea A04.72 Active c onfirmed 7717992556499 Problem Acid reflux K21.9 Active confirmed 32557869 9 Problem Allergic rhinitis, cause unspecified 477.9 Act abdon confirmed 99880888 Problem Obesity affecting in second trimester O9 9.212 Active confirmed 161032442517 Problem BMI 33.0-33.9,adult Z68.33 Active confirmed 181916212 Problem Obesity, unspecified E66.9 Active confirmed 481288126 Problem Obesity complicating in second trimester O99.212 Active confirmed 763667656006 ALLERGIES Allergen (clinical drug ingredient) Drug/Non Drug Allergy do cumented on EMR Reaction Allergy Type Onset Date Status Ortho Tri-Cyclen (28) made her feel depressed Drug Allergy Active amitriptyline Amitriptyline HCl([facility] Code:[address]-19) Rash Dr hooks Allergy Active ENCOUNTERS from 1997 to 2021-01-26 Encounter Location Date Provider Diagnosis [facility] [address] [phone] [place] [address] Dec, Julia VanArnam Acid reflux K21.9 ; Diseases of the digestive system complicating , third trimester O99.613 ; 30 weeks gestation of Z3A.30 and Encounter for supervision of low-risk first in third trimester Z34.03 IMMUNIZATIONS Vaccine Route Administration Date Status Varicella 0.5mL VariVax Unknown Dec 06, 2008 Administ ered CUXP-FFR-FZN 0.5mL (Pentacel) Unknown 1997 Ad ministered HGIO-DTL-ORT 0.5mL (Pentacel) Unknown Jan 12, 1998 Ad ministered VDUB-WKV-CUL 0.5mL (Pentacel) Unknown Mar 08, 1998 Ad [...] Education Language: Question Answer Notes Languages spoken: Palauan Domestic Violence: Question Answer Notes Status: Single Drug and Alcohol Question Answer Notes Total Score: 0 Interpretation: No problems reported Alcohol Screening: Question Answer Notes Did you have a drink containing alcohol in the past year? No Points 0 Interpretation Negative Tobacco Use: Question Answer Notes Are you a: never smoker never smoker REASON FOR REFERRAL No Information VITAL SIGNS Weight 225 lbs Dec, Weight 225 lbs Dec, Height 66 in Dec, BMI 36.316 kg/m2 Dec, Blood pressure systolic 122 mm Hg Dec, Blood pressure diastolic 68 mm Hg Dec, MEDICATIONS Medication SIG (Take, [...] Medical History migraines - Dr. [place] in [place] Medical History asthma - exercise induced Medical [...] Treatment Notes Treatm ent Clinical Notes Dec, Acid reflux (ICD-10 - K21.9) Dec, Diseases of the digestive sy stem complicating , third trimester (ICD-10 - O99.613) Dec, 30 weeks gestation of (ICD-10 - Z3A.30 ) Dec, Encounter for supervision of low-risk first in third trimester (ICD-10 - Z34.03) PLAN OF TREATMENT Medication Medication Name Sig Start Date Stop Date Omeprazole 20 MG 1 capsule 30 minutes before morning meal Orally Once a day for 30 day(s) Dec, Next Appt Details 2 Weeks Reason: Provider Name:Julia Larsen, 2020-10-0 8 08:00:00 AM, [address], , [place], [address], Follow Up:2 WeeksPrenatal Insurance Providers Payer Name Payer Address Payer Phone Insured Name Patient Relati onship to Insured Coverage Start Date Coverage End Date [facility] [address] [facility] [id number] TYLER KENNY [id number]
--- OUTSIDE RECORDS SUMMARY | 2021-02-05 16:29 | CCD ---
Author Author [facility] Organization [facility] Address Unknown Phone Unavailable Support Name Relationship Address Phone ARC Next Of Kin [id number] ABELINO [place] [address] SKH* Next Of Kin [address] [place] [address] UE Next Of Kin Unknown Unavailable STUDENT Next Of Kin [address] [place] [address] TOMY SERNA Next Of Kin [address] [place] [address] Jose SERNA Next Of Kin [address] [place] [address] [place] [address] Unavailable Tomy Serna ECON [address] [place] [address] Unavailable Re-disclosure Warning The records that you are about to access may contain information from federally-assisted alcohol or drug abuse programs. If such information is present, then the following federally mandated warning applies: This information has been disclosed to you from records protected by federal confidentiality rules (42 CFR part 2). The federal rules prohibit you from making any further disclosure of this information unless further disclosure is expressly permitted by the written consent of the person to whom it pertains or as otherwise permitted by 42 CFR part 2. A general authorization for the release of medical or other information is NOT sufficient for this purpose. The Federal rules restrict any use of the information to criminally investigate or prosecute any alcohol or drug abuse patient.The records that you are about to access may contain highly sensitive health information, the redisclosure of which is protected by Article 27-F of the [place] State Public Health law. If you continue you may have access to information: Regarding HIV / AIDS; Provided by facilities licensed or operated by the [facility] Office of Mental Health; or Provided by the [facility] Office for People With Developmental Disabilities. If such information is present, then the following [facility] mandated warning applies: This information has been disclosed to you from confidential records which are protected by state law. State law prohibits you from making any further disclosure of this information without the specific written consent of the person to whom it pertains, or as otherwise permitted by law. Any unauthorized further disclosure in violation of state law may result in a fine or alf sentence or both. A general authorization for the release of medical or other information is NOT sufficient authorization for further disc losure. Encounters Encounter Providers Location Date Indications Data Source(s ) ( ESTOB) [facility] OB [address] [place] [address] 01/28/2021 12:00:00 AM EDT eCW1 ([facility]) Unknown [address] [facility] [place] [address] 01/18/2021 12:00:00 AM EDT eCW1 ([facility]) ( ESTOB) [facility] Est OB [address] [place] [address] 01/14/2021 12:00:00 AM EDT eCW1 ([facility]) ( ESTOB) [facility] OB [address] [place] [address] 12/28/2020 12:00:00 AM EDT eCW1 ([facility]) ( ESTOB) [facility] OB [address] [place] [address] 12/09/2020 12:00:00 AM EDT eCW1 ([facility]) ( ESTOB) [facility] OB [address] [place] [address] 11/11/2020 12:00:00 AM EDT eCW1 ([facility]) ( ESTOB) [facility] OB [address] [place] [address] 10/15/2020 12:00:00 AM EDT eCW1 ([facility]) [place] [address] [facility] [address] 10/13/2020 12:00:00 AM EDT eCW1 ([facility]) [place] [address] [facility] [address] 10/06/2020 12:00:00 AM EDT eCW1 ([facility]) ( ESTOB) [facility] [address] [place] [address] 09/17/2020 12:00:00 AM EDT eCW1 ([facility]) ( ESTOB) [facility] [address] [place] [address] 08/23/2020 12:00:00 AM EDT eCW1 ([facility]) ( ESTOB) [facility] [address] [place] [address] 08/03/2020 12:00:00 AM EDT eCW1 ([facility]) Immunizations Vaccine Date Status Description Data Source(s) Tdap 12/28/2020 09:54:00 AM EDT completed e CW1 ([facility]) Tdap 12/28/2020 09:54:00 AM EDT completed e CW1 ([facility]) Tdap 12/28/2020 09:54:00 AM EDT completed e CW1 ([facility]) Tdap 12/28/2020 09:54:00 AM EDT completed e CW1 ([facility]) Tdap 12/28/2020 09:54:00 AM EDT completed e CW1 ([facility]) Medications Medication Brand Name Start Date Product Form Dose Route Admi nistrative Instructions Pharmacy Instructions Status Indications Reaction Description Data Source(s) 20 mg 01/15/2021 12:00:00 AM EDT capsule,delayed release (DR/EC) 30 TAKE ONE CAPSULE BY MOUTH EVERY MORNING 30 MINUTES BEFORE MORNING MEAL TAKE ONE CAPSULE BY MOUTH EVERY MORNING 30 MINUTES BEFORE MORNING MEAL SOLD: 01/17/2021 [facility] Omeprazole 20 MG Delayed Release Oral Capsule Omeprazole 20 MG 01/14/2021 12:00:00 AM EDT active Omeprazo le 20 MG eCW1 ([facility]) Omeprazole 20 MG Delayed Release Oral Capsule Omeprazole 20 MG 01/14/2021 12:00:00 AM EDT active Omeprazo le 20 MG eCW1 ([facility]) Omeprazole 20 MG Delayed Release Oral Capsule Omeprazole 20 MG 01/14/2021 12:00:00 AM EDT active Omeprazo le 20 MG eCW1 ([facility]) Omeprazole 20 MG Delayed Release Oral Capsule Omeprazole 20 MG 01/14/2021 12:00:00 AM EDT active Omeprazo le 20 MG eCW1 ([facility]) Omeprazole 20 MG Delayed Release Oral Capsule Omeprazole 20 MG 01/14/2021 12:00:00 AM EDT active Omeprazo le 20 MG eCW1 ([facility]) Insurance Providers Payer name Policy type / Coverage type Policy ID Covered republican ID Covered republican's relationship to tomas Policy Tomas Plan Information [facility] [id number] FA2 [id number] [employer] [id number] FA2 [id number] [facility] [id number] FA2 [id number] [employer] [id number] FA2 [id number] [employer] [id number] FA2 [id number] [employer] [id number] FA2 [id number] [facility] O [id number] S [id number] [employer] [id number] FA2 [id number] [facility] [id number] FA2 [id number] ANSI-Commercial [id number] ANSI-Commercial [id number] ANSI-Commercial [id number] ANSI-Commercial [id number] ANSI-Commercial [id number] ANSI-Commercial [id number] ANSI-Commercial [id number] ANSI-Commercial [id number] ANSI-Commercial [id number] ANSI-Commercial [id number] ANSI-Commercial [id number] ANSI-Commercial [id number] ANSI-Commercial [id number] [place] [id number] FA2 [id number] ANSI-Commercial [id number] [facility] DIV [id number] [id number] [facility] [id number] FA2 [id number] ANSI-Commercial [id number] [facility] [id number] FA2 [id number] [facility] DIV [id number] FA2 [id number] Emp/[facility] Commercial [id number] Family Dependent [id number] Problems, Conditions, and Diagnoses Code Display Name Description Problem Type Effective Dates Data Source(s) O99.213 Obesity complicating , third tr imester Obesity complicating in third trimester Problem 01/26/2021 12:00:00 AM EDT eCW1 ([facility]) K21.9 [id number] Acid reflux Problem 01/14/2021 12:00:00 AM E DT eCW1 ([facility]) O99.212 [id number] Obesity complicating in second trimester Problem 10/15/2020 12:00:00 AM EDT eCW1 ([facility]) E66.9 [id number] Obesity, unspecified Problem 10/15/2020 12:0 0:00 AM EDT eCW1 ([facility]) Z68.33 [id number] BMI 33.0-33.9,adult Problem 10/15/2020 12:00 :00 AM EDT eCW1 ([facility]) E66.09 [id number] Other obesity due to excess calories Prob karen 09/17/2020 12:00:00 AM EDT eCW1 ([facility]) O99.212 [id number] Obesity affecting in second tri mester Problem 09/16/2020 12:00:00 AM EDT eCW1 ([facility]) Z34.80 care Supervision of other normal Zach garza 02/02/2020 12:00:00 AM EDT eCW1 ([facility]) Surgeries/Procedures Procedure Description Date Indications Data Source(s) TDAP VACCINE 7/> YR IM 12/28/2020 12:00:00 AM EDT eCW1 ([facility]) Results ID Date Data Source [id number] 08/03/2020 12:00:00 AM EDT eCW1 [facility] Name Value Range Interpretation Code Description Data Chasity rce(s) Supporting Document(s) Hemoglobin A1c/Hemoglobin.total in Blood 5.0 HEMOGLOBIN A1c eCW1 ([facility]) ID Date Data Source HBSAG 08/03/2020 12:00:00 AM EDT eCW1 ([facility]) Name Value Range Interpretation Code Description Data Chasity rce(s) Supporting Document(s) NEGATIVE NEGATIVE HBsAg eCW1 ([facility]) ID Date Data Source HEPATITIS C ANTIBODY INDEX 08/03/2020 12:00:00 AM EDT eCW1 ( [facility]) Name Value Range Interpretation Code Description Data Chasity rce(s) Supporting Document(s) 0.0 <0.8 HEPATITIS C VIRUS WILFRIDO INDEX eC W1 ([facility]) ID Date Data Source RUBELLA IMMUNE STATUS IgG 08/03/2020 12:00:00 AM EDT eCW1 ([facility]) Name Value Range Interpretation Code Description Data Chasity rce(s) Supporting Document(s) IMMUNE IMMUNE RUBELLA IgG QUALITATIVE eCW1 ( [facility]) ID Date Data Source SYPHILIS ANTIBODY (RPR SCREEN) 08/03/2020 12:00:00 AM EDT eC W1 ([facility]) Name Value Range Interpretation Code Description Data Chasity rce(s) Supporting Document(s) NONREACTIVE NONREACTIVE SYPHILIS eCW1 ([facility]) ID Date Data Source [id number] 08/03/2020 12:00:00 AM EDT eCW1 ([facility] Name Value Range Interpretation Code Description Data Chasity rce(s) Supporting Document(s) HIV 1&2 ANTIBODY SCREEN eCW1 ( [facility]) ID Date Data Source FREE T4 & TSH PANEL 08/03/2020 12:00:00 AM EDT eCW1 ([facility]) Name Value Range Interpretation Code Description Data Chasity rce(s) Supporting Document(s) 0.95 0.76-1.46 FREE T4 eCW1 ([facility]) 2.910 0.358-3.740 THYROID STIMULATING HORM ONE eCW1 ([facility]) ID Date Data Source CBC - Complete Blood Count 08/03/2020 12:00:00 AM EDT eCW1 ( [facility]) Name Value Range Interpretation Code Description Data Chasity rce(s) Supporting Document(s) 4.60 4.00-5.40 RED BLOOD COUNT eCW1 ([facility]) 11.2 4.0-10.0 WHITE BLOOD COUNT eCW1 ([facility]) 41.7 36.0-47.0 HEMATOCRIT eCW1 ([facility]) 13.5 12.0-15.5 HEMOGLOBIN eCW1 ([facility]) 90.7 80.0-96.0 MEAN CORPUSCULAR VOLUME e CW1 ([facility]) 12.1 11.5-14.5 RED CELL DISTRIBUTION WID TH eCW1 ([facility]) 29.3 27.0-33.0 MEAN CORPUSCULAR HEMOGLOB IN eCW1 ([facility]) 32.4 32.0-36.5 MEAN CORPUSCULAR HGB CONC eCW1 ([facility]) 415 150-450 PLATELET COUNT, AUTOMATED eCW1 ([facility]) ID Date Data Source Type and Screen Prenatal1 08/03/2020 12:00:00 AM EDT eCW1 ([facility]) Name Value Range Interpretation Code Description Data Chasity rce(s) Supporting Document(s) NEGATIVE AB SCREEN PNP1 GEL (VIS) eCW1 ([facility]) ID Date Data Source [id number] 12/11/2019 12:00:00 AM EDT [facility] Name Value Range Interpretation Code Description Data Chasity rce(s) Supporting Document(s) SARS coronavirus 2 RNA [Presence] in Res piratory specimen by SNOW with probe detection [facility] This lab was ordered by Lam Zafar and reported by [employer]. Procedure Social History Code Duration Value Status Description Data Source(s ) Smoking 01/28/2021 12:00:00 AM EDT UNK completed eCW1 ([facility]) Smoking 01/28/2021 12:00:00 AM EDT UNK completed eCW1 ([facility]) Smoking 01/06/2021 12:00:00 AM EDT UNK completed eCW1 ([facility]) Smoking 01/06/2021 12:00:00 AM EDT UNK completed eCW1 ([facility]) Smoking 01/06/2021 12:00:00 AM EDT UNK completed eCW1 ([facility]) Smoking 11/10/2020 12:00:00 AM EDT UNK completed eCW1 ([facility]) Smoking 10/12/2020 12:00:00 AM EDT UNK completed eCW1 ([facility]) Smoking 10/12/2020 12:00:00 AM EDT UNK completed eCW1 ([facility]) Smoking 09/17/2020 12:00:00 AM EDT UNK completed eCW1 ([facility]) Smoking 09/17/2020 12:00:00 AM EDT UNK completed eCW1 ([facility]) Smoking 08/23/2020 12:00:00 AM EDT UNK completed eCW1 ([facility]) Smoking 08/03/2020 12:00:00 AM EDT UNK completed eCW1 ([facility]) Vital Signs ID Date Data Source UNK Name Value Range Interpretation Code Description Data Source(s) Body weight 227 [lb_av] 227 [lb_av] eCW1 ([facility]) Body weight 102.97 kg 102.97 kg eCW1 ([facility] Body height 66 [in_i] 66 [in_i] eCW1 ([facility]) Body mass index (BMI) [Ratio] 36.639 kg/m2 36.6 39 kg/m2 eCW1 ([facility]) Systolic blood pressure 120 mm[Hg] 120 mm[Hg] e CW1 ([facility]) Diastolic blood pressure 74 mm[Hg] 74 mm[Hg] eCW1 ([facility]) Body weight 225 [lb_av] 225 [lb_av] eCW1 ([facility]) Body weight 225 [lb_av] 225 [lb_av] eCW1 ([facility]) Body height 66 [in_i] 66 [in_i] eCW1 ([facility]) Body mass index (BMI) [Ratio] 36.316 kg/m2 36.3 16 kg/m2 eCW1 ([facility]) Systolic blood pressure 122 mm[Hg] 122 mm[Hg] e CW1 ([facility]) Diastolic blood pressure 68 mm[Hg] 68 mm[Hg] eCW1 ([facility]) Systolic blood pressure 118 mm[Hg] 118 mm[Hg] e CW1 ([facility]) Body weight 222.4 [lb_av] 222.4 [lb_av] eCW1 ([facility]) Body weight 100.88 kg 100.88 kg eCW1 ([facility]) Body height 66 [in_i] 66 [in_i] eCW1 ([facility]) Body mass index (BMI) [Ratio] 35.896 kg/m2 35.8 96 kg/m2 eCW1 ([facility]) Diastolic blood pressure 76 mm[Hg] 76 mm[Hg] eCW1 ([facility]) Body weight 219 [lb_av] 219 [lb_av] eCW1 ([facility]) Body weight 99.34 kg 99.34 kg eCW1 ([facility]) Body height 66 [in_i] 66 [in_i] eCW1 ([facility]) Body mass index (BMI) [Ratio] 35.348 kg/m2 35.3 48 kg/m2 eCW1 ([facility]) Systolic blood pressure 128 mm[Hg] 128 mm[Hg] e CW1 ([facility]) Diastolic blood pressure 76 mm[Hg] 76 mm[Hg] eCW1 ([facility]) Body weight 212 [lb_av] 212 [lb_av] eCW1 ([facility]) Body weight 96.16 kg 96.16 kg eCW1 ([facility]) Body height 66 [in_i] 66 [in_i] eCW1 ([facility]) Systolic blood pressure 108 mm[Hg] 108 mm[Hg] e CW1 ([facility]) Diastolic blood pressure 72 mm[Hg] 72 mm[Hg] eCW1 ([facility]) Body mass index (BMI) [Ratio] 34.218 kg/m2 34.2 18 kg/m2 eCW1 ([facility]) Body weight 207.8 [lb_av] 207.8 [lb_av] eCW1 ([facility]) Body height 66 [in_i] 66 [in_i] eCW1 ([facility]) Body mass index (BMI) [Ratio] 33.54 kg/m2 33.54 kg/m2 W1 ([facility]) Systolic blood pressure 120 mm[Hg] 120 mm[Hg] e CW1 ([facility]) Diastolic blood pressure 78 mm[Hg] 78 mm[Hg] eCW1 ([facility]) Body weight 206.6 [lb_av] 206.6 [lb_av] eCW1 ([facility]) Body height 66 [in_i] 66 [in_i] eCW1 ([facility]) Body mass index (BMI) [Ratio] 33.346 kg/m2 33.3 46 kg/m2 eCW1 ([facility]) Systolic blood pressure 122 mm[Hg] 122 mm[Hg] e CW1 ([facility]) Diastolic blood pressure 84 mm[Hg] 84 mm[Hg] eCW1 ([facility]) Systolic blood pressure 124 mm[Hg] 124 mm[Hg] e CW1 ([facility]) Diastolic blood pressure 84 mm[Hg] 84 mm[Hg] eCW1 ([facility]) Body weight 206.8 [lb_av] 206.8 [lb_av] eCW1 ([facility]) Body weight 93.8 kg 93.8 kg eCW1 ([facility]) Body height 66 [in_i] 66 [in_i] eCW1 ([facility]) Body mass index (BMI) [Ratio] 33.378 kg/m2 33.3 78 kg/m2 eCW1 ([facility]) Body weight 203 [lb_av] 203 [lb_av] eCW1 ([facility]) Body weight 92.08 kg 92.08 kg eCW1 ([facility]) Body height 66 [in_i] 66 [in_i] eCW1 ([facility]) Body mass index (BMI) [Ratio] 32.765 kg/m2 32.7 65 kg/m2 eCW1 ([facility]) Systolic blood pressure 120 mm[Hg] 120 mm[Hg] e CW1 ([facility]) Diastolic blood pressure 78 mm[Hg] 78 mm[Hg] eCW1 ([facility]) Patient Treatment Plan of Care Planned Activity Planned Date Details Description Data Source (s) Omeprazole 20 MG Delayed Release Oral Capsule 01/14/2021 12:00:00 A M EDT eCW1 ([facility]) Omeprazole 20 MG Delayed Release Oral Capsule 01/14/2021 12:00:00 A M EDT eCW1 ([facility]) Omeprazole 20 MG Delayed Release Oral Capsule 01/14/2021 12:00:00 A M EDT eCW1 ([facility])
--- NOTE | 2021-02-05 17:20 | REP ---
INDICATION: fall injury COMPARISON: None. TECHNIQUE: AP, lateral, bilateral oblique views right foot. FINDINGS: Oblique fracture involving the 5th metatarsal bone with overlying soft tissue swelling. No other fracture or dislocation. IMPRESSION: Oblique fracture of the 5th metatarsal bone.. <Electronically signed by Clifton Nation > 02/05/21 [id number]
--- OUTSIDE RECORDS SUMMARY | 2021-02-05 17:38 | CCD ---
Author Author [facility] Organization [facility] Address Unknown Phone Unavailable Support Name Relationship Address Phone ARC Next Of Kin [address] [place] [address] [place] [address] SKH* Next Of Kin [address] [place] [address] UE Next Of Kin Unknown Unavailable STUDENT Next Of Kin [address] [place] [address] TOMY SERNA Next Of Kin [address] [place] [address] Jose SERNA Next Of Kin [address] [place] [address] [place] [address] Unavailable Tomy Serna ECON [address] [place] [id number] Unavailable Re-disclosure Warning The records that you [...] is protected by Article 27-F of the [place] State Public Health law. If you continue you may have access to information: Regarding HIV / AIDS; Provided by facilities licensed or operated by the [facility] Office of Mental Health; or Provided by the [facility] Office for People With Developmental Disabilities. If such information is present, then the following [facility] mandated warning applies: This information [...] law may result in a fine or senior living sentence or both. A general authorization for the release of medical or other information is NOT sufficient authorization for further disc losure. Encounters Encounter Providers Location Date Indications Data Source(s ) ( ESTOB) [facility] OB [address] [place] [address] 01/28/2021 12:00:00 AM EDT eCW1 ([facility]) Unknown [address] [facility] [address] 01/18/2021 12:00:00 AM EDT eCW1 ([facility]) ( ESTOB) [facility] Est OB [address] [place] [address] 01/14/2021 12:00:00 AM EDT eCW1 ([facility]) ( ESTOB) [facility] OB [address] [place] [address] 12/28/2020 12:00:00 AM EDT eCW1 ([facility]) ( ESTOB) [facility] OB [address] [place] [address] 12/09/2020 12:00:00 AM EDT eCW1 ([facility]) ( ESTOB) [facility] OB [address] [place] [address] 11/11/2020 12:00:00 AM EDT eCW1 ([facility]) ( ESTOB) [facility] Est OB [address] [place] [address] 10/15/2020 12:00:00 AM EDT eCW1 ([facility]) [place] [address] [facility] [address] 10/13/2020 12:00:00 AM EDT eCW1 ([facility]) [place] [address] [facility] [address] 10/06/2020 12:00:00 AM EDT eCW1 ([facility]) ( ESTOB) [facility] [address] [place] [address] 09/17/2020 12:00:00 AM EDT eCW1 ([facility]) ( ESTOB) [facility] [address] [place] [address] 08/23/2020 12:00:00 AM EDT eCW1 ([facility]) ( ESTOB) [facility] [address] [place] [address] 08/03/2020 12:00:00 AM EDT eCW1 ([facility]) Immunizations Vaccine Date Status Description Data Source(s) Tdap 12/28/2020 09:54:00 AM EDT completed e CW1 ([facility]) Tdap 12/28/2020 09:54:00 AM EDT completed e CW1 ([facility]) Tdap 12/28/2020 09:54:00 AM EDT completed e CW1 ([facility]) Tdap 12/28/2020 09:54:00 AM EDT completed e CW1 ([facility]) Tdap 12/28/2020 09:54:00 AM EDT completed e CW1 ([facility]) Medications Medication Brand Name Start Date Product Form Dose Route Admi nistrative Instructions Pharmacy Instructions Status Indications Reaction Description Data Source(s) 20 mg 01/15/2021 12:00:00 AM EDT capsule,delayed release (DR/EC) 30 TAKE ONE CAPSULE BY MOUTH EVERY MORNING 30 MINUTES BEFORE MORNING MEAL TAKE ONE CAPSULE BY MOUTH EVERY MORNING 30 MINUTES BEFORE MORNING MEAL SOLD: 01/17/2021 [facility] Omeprazole 20 MG Delayed Release Oral Capsule Omeprazole 20 MG 01/14/2021 12:00:00 AM EDT active Omeprazo le 20 MG eCW1 ([facility]) Omeprazole 20 MG Delayed Release Oral Capsule Omeprazole 20 MG 01/14/2021 12:00:00 AM EDT active Omeprazo le 20 MG eCW1 ([facility]) Omeprazole 20 MG Delayed Release Oral Capsule Omeprazole 20 MG 01/14/2021 12:00:00 AM EDT active Omeprazo le 20 MG eCW1 ([facility]) Omeprazole 20 MG Delayed Release Oral Capsule Omeprazole 20 MG 01/14/2021 12:00:00 AM EDT active Omeprazo le 20 MG eCW1 ([facility]) Omeprazole 20 MG Delayed Release Oral Capsule Omeprazole 20 MG 01/14/2021 12:00:00 AM EDT active Omeprazo le 20 MG eCW1 ([facility]) Insurance Providers Payer name Policy type / Coverage type Policy ID Covered republican ID Covered republican's relationship to tomas Policy Tomas Plan Information [employer] [id number] FA2 [id number] [facility] [id number] FA2 [id number] [employer] E[employer] [id number] FA2 [id number] [facility] [id number] FA2 [id number] [employer] [id number] FA2 [id number] [employer] [id number] [id number] [facility] O [id number] S [id number] [employer] [id number] FA2 [id number] [facility] [id number] FA2 [id number] ANSI-Commercial [id number] ANSI-Commercial [id number] ANSI-Commercial [id number] ANSI-Commercial [id number] ANSI-Commercial [id number] ANSI-Commercial [id number] ANSI-Commercial [id number] ANSI-Commercial [id number] ANSI-Commercial [id number] ANSI-Commercial [id number] ANSI-Commercial [id number] ANSI-Commercial [id number] ANSI-Commercial [id number] [facility] [id number] FA2 [id number] ANSI-Commercial [id number] [facility] [id number] FA2 [id number] [facility] [id number] FA2 [id number] ANSI-Commercial [id number] [facility] [id number] FA2 [id number] [facility] [id number] FA2 [id number] Emp/[facility] Commercial [id number] Family Dependent [id number] Problems, Conditions, and Diagnoses Code Display Name Description Problem Type Effective Dates Data Source(s) O99.213 Obesity complicating , third tr imester Obesity complicating in third trimester Problem 01/26/2021 12:00:00 AM EDT eCW1 ([facility]) K21.9 [id number] Acid reflux Problem 01/14/2021 12:00:00 AM E DT eCW1 ([facility]) O99.212 [id number] Obesity complicating in second trimester Problem 10/15/2020 12:00:00 AM EDT eCW1 ([facility]) E66.9 145411349 Obesity, unspecified Problem 10/15/2020 12:0 0:00 AM EDT eCW1 ([facility]) Z68.33 123764409 BMI 33.0-33.9,adult Problem 10/15/2020 12:00 :00 AM EDT eCW1 ([facility]) E66.09 714373009 Other obesity due to excess calories Prob karen 09/17/2020 12:00:00 AM EDT eCW1 ([facility]) O99.212 [id number] Obesity affecting in second tri mester Problem 09/16/2020 12:00:00 AM EDT eCW1 ([facility]) Z34.80 care Supervision of other normal Zach kayla 02/02/2020 12:00:00 AM EDT eCW1 ([facility]) Surgeries/Procedures Procedure Description Date Indications Data Source(s) TDAP VACCINE 7/> YR IM 12/28/2020 12:00:00 AM EDT eCW1 ([facility]) Results ID Date Data Source [id number] 08/03/2020 12:00:00 AM EDT eCW1 ([facility]) Name Value Range Interpretation Code Description Data Chasity rce(s) Supporting Document(s) Hemoglobin A1c/Hemoglobin.total in Blood 5.0 HEMOGLOBIN A1c eCW1 ([facility]) ID Date Data Source HBSAG 08/03/2020 12:00:00 AM EDT eCW1 ([facility]) Name Value Range Interpretation Code Description Data Chasity rce(s) Supporting Document(s) NEGATIVE NEGATIVE HBsAg eCW1 ([facility]) ID Date Data Source HEPATITIS C ANTIBODY INDEX 08/03/2020 12:00:00 AM EDT eCW1 ( [facility]) Name Value Range Interpretation Code Description Data Chasity rce(s) Supporting Document(s) 0.0 <0.8 HEPATITIS C VIRUS WILFRIDO INDEX eC W1 ([facility]) ID Date Data Source RUBELLA IMMUNE STATUS IgG 08/03/2020 12:00:00 AM EDT eCW1 ([facility]) Name Value Range Interpretation Code Description Data Chasity rce(s) Supporting Document(s) IMMUNE IMMUNE RUBELLA IgG QUALITATIVE eCW1 ( [facility]) ID Date Data Source SYPHILIS ANTIBODY (RPR SCREEN) 08/03/2020 12:00:00 AM EDT eC W1 ([facility]) Name Value Range Interpretation Code Description Data Chasity rce(s) Supporting Document(s) NONREACTIVE NONREACTIVE SYPHILIS eCW1 ([facility]) ID Date Data Source [id number] 08/03/2020 12:00:00 AM EDT eCW1 ([facility]) Name Value Range Interpretation Code Description Data Chasity rce(s) Supporting Document(s) HIV 1&2 ANTIBODY SCREEN eCW1 ( [facility]) ID Date Data Source FREE T4 & TSH PANEL 08/03/2020 12:00:00 AM EDT eCW1 ([facility]) Name Value Range Interpretation Code Description Data Chasity rce(s) Supporting Document(s) 0.95 0.76-1.46 FREE T4 eCW1 ([facility]) 2.910 0.358-3.740 THYROID STIMULATING HORM ONE eCW1 ([facility]) ID Date Data Source CBC - Complete Blood Count 08/03/2020 12:00:00 AM EDT eCW1 ( [facility]) Name Value Range Interpretation Code Description Data Chasity rce(s) Supporting Document(s) 4.60 4.00-5.40 RED BLOOD COUNT eCW1 ([facility]) 11.2 4.0-10.0 WHITE BLOOD COUNT eCW1 ([facility]) 41.7 36.0-47.0 HEMATOCRIT eCW1 ([facility]) 13.5 12.0-15.5 HEMOGLOBIN eCW1 ([facility]) 90.7 80.0-96.0 MEAN CORPUSCULAR VOLUME e CW1 ([facility]) 12.1 11.5-14.5 RED CELL DISTRIBUTION WID TH eCW1 ([facility]) 29.3 27.0-33.0 MEAN CORPUSCULAR HEMOGLOB IN eCW1 ([facility]) 32.4 32.0-36.5 MEAN CORPUSCULAR HGB CONC eCW1 ([facility]) 415 150-450 PLATELET COUNT, AUTOMATED eCW1 ([facility]) ID Date Data Source Type and Screen Prenatal1 08/03/2020 12:00:00 AM EDT eCW1 ([facility]) Name Value Range Interpretation Code Description Data Chasity rce(s) Supporting Document(s) NEGATIVE AB SCREEN PNP1 GEL (VIS) eCW1 ([facility]) ID Date Data Source [id number] 12/11/2019 12:00:00 AM EDT [facility] Name Value Range Interpretation Code Description Data Chasity rce(s) Supporting Document(s) SARS coronavirus 2 RNA [Presence] in Res piratory specimen by SNOW with probe detection [facility] This lab was ordered by Lam Zafar and reported by [facility]. Procedure Social History Code Duration Value Status Description Data Source(s ) Smoking 01/28/2021 12:00:00 AM EDT UNK completed eCW1 ([facility]) Smoking 01/28/2021 12:00:00 AM EDT UNK completed eCW1 ([facility]) Smoking 01/06/2021 12:00:00 AM EDT UNK completed eCW1 ([facility]) Smoking 01/06/2021 12:00:00 AM EDT UNK completed eCW1 ([facility]) Smoking 01/06/2021 12:00:00 AM EDT UNK completed eCW1 ([facility]) Smoking 11/10/2020 12:00:00 AM EDT UNK completed eCW1 ([facility]) Smoking 10/12/2020 12:00:00 AM EDT UNK completed eCW1 ([facility]) Smoking 10/12/2020 12:00:00 AM EDT UNK completed eCW1 ([facility]) Smoking 09/17/2020 12:00:00 AM EDT UNK completed eCW1 ([facility]) Smoking 09/17/2020 12:00:00 AM EDT UNK completed eCW1 ([facility]) Smoking 08/23/2020 12:00:00 AM EDT UNK completed eCW1 ([facility]) Smoking 08/03/2020 12:00:00 AM EDT UNK completed eCW1 ([facility]) Vital Signs ID Date Data Source UNK Name Value Range Interpretation Code Description Data Source(s) Body weight 227 [lb_av] 227 [lb_av] eCW1 ([facility]) Body weight 102.97 kg 102.97 kg eCW1 ([facility]) Body height 66 [in_i] 66 [in_i] eCW1 ([facility]) Body mass index (BMI) [Ratio] 36.639 kg/m2 36.6 39 kg/m2 eCW1 ([facility]) Systolic blood pressure 120 mm[Hg] 120 mm[Hg] e CW1 ([facility]) Diastolic blood pressure 74 mm[Hg] 74 mm[Hg] eCW1 ([facility]) Body weight 225 [lb_av] 225 [lb_av] eCW1 ([facility]) Body weight 225 [lb_av] 225 [lb_av] eCW1 ([facility]) Body height 66 [in_i] 66 [in_i] eCW1 ([facility]) Body mass index (BMI) [Ratio] 36.316 kg/m2 36.3 16 kg/m2 eCW1 ([facility]) Systolic blood pressure 122 mm[Hg] 122 mm[Hg] e CW1 ([facility]) Diastolic blood pressure 68 mm[Hg] 68 mm[Hg] eCW1 ([facility]) Systolic blood pressure 118 mm[Hg] 118 mm[Hg] e CW1 ([facility]) Body weight 222.4 [lb_av] 222.4 [lb_av] eCW1 ([facility]) Body weight 100.88 kg 100.88 kg eCW1 ([facility]) Body height 66 [in_i] 66 [in_i] eCW1 ([facility]) Body mass index (BMI) [Ratio] 35.896 kg/m2 35.8 96 kg/m2 eCW1 ([facility]) Diastolic blood pressure 76 mm[Hg] 76 mm[Hg] eCW1 ([facility]) Body weight 219 [lb_av] 219 [lb_av] eCW1 ([facility]) Body weight 99.34 kg 99.34 kg eCW1 ([facility]) Body height 66 [in_i] 66 [in_i] eCW1 ([facility]) Body mass index (BMI) [Ratio] 35.348 kg/m2 35.3 48 kg/m2 eCW1 ([facility]) Systolic blood pressure 128 mm[Hg] 128 mm[Hg] e CW1 ([facility]) Diastolic blood pressure 76 mm[Hg] 76 mm[Hg] eCW1 ([facility]) Body weight 212 [lb_av] 212 [lb_av] eCW1 ([facility]) Body weight 96.16 kg 96.16 kg eCW1 ([facility]) Body height 66 [in_i] 66 [in_i] eCW1 ([facility]) Body mass index (BMI) [Ratio] 34.218 kg/m2 34.2 18 kg/m2 eCW1 ([facility]) Systolic blood pressure 108 mm[Hg] 108 mm[Hg] e CW1 ([facility]) Diastolic blood pressure 72 mm[Hg] 72 mm[Hg] eCW1 ([facility]) Body weight 207.8 [lb_av] 207.8 [lb_av] eCW1 ([facility]) Body height 66 [in_i] 66 [in_i] eCW1 ([facility]) Body mass index (BMI) [Ratio] 33.54 kg/m2 33.54 kg/m2 W1 ([facility]) Systolic blood pressure 120 mm[Hg] 120 mm[Hg] e CW1 ([facility]) Diastolic blood pressure 78 mm[Hg] 78 mm[Hg] eCW1 ([facility]) Body weight 206.6 [lb_av] 206.6 [lb_av] eCW1 ([facility]) Body height 66 [in_i] 66 [in_i] eCW1 ([facility]) Body mass index (BMI) [Ratio] 33.346 kg/m2 33.3 46 kg/m2 eCW1 ([facility]) Systolic blood pressure 122 mm[Hg] 122 mm[Hg] e CW1 ([facility]) Diastolic blood pressure 84 mm[Hg] 84 mm[Hg] eCW1 ([facility]) Body weight 206.8 [lb_av] 206.8 [lb_av] eCW1 ([facility]) Body weight 93.8 kg 93.8 kg eCW1 ([facility]) Body height 66 [in_i] 66 [in_i] eCW1 ([facility]) Body mass index (BMI) [Ratio] 33.378 kg/m2 33.3 78 kg/m2 eCW1 ([facility]) Systolic blood pressure 124 mm[Hg] 124 mm[Hg] e CW1 ([facility]) Diastolic blood pressure 84 mm[Hg] 84 mm[Hg] eCW1 ([facility]) Diastolic blood pressure 78 mm[Hg] 78 mm[Hg] eCW1 ([facility]) Body weight 203 [lb_av] 203 [lb_av] eCW1 ([facility]) Body weight 92.08 kg 92.08 kg eCW1 ([facility]) Body height 66 [in_i] 66 [in_i] eCW1 ([facility]) Body mass index (BMI) [Ratio] 32.765 kg/m2 32.7 65 kg/m2 eCW1 ([facility]) Systolic blood pressure 120 mm[Hg] 120 mm[Hg] e CW1 ([facility]) Patient Treatment Plan of Care Planned Activity Planned Date Details Description Data Source (s) Omeprazole 20 MG Delayed Release Oral Capsule 01/14/2021 12:00:00 A M EDT eCW1 ([facility]) Omeprazole 20 MG Delayed Release Oral Capsule 01/14/2021 12:00:00 A M EDT eCW1 ([facility]) Omeprazole 20 MG Delayed Release Oral Capsule 01/14/2021 12:00:00 A M EDT eCW1 ([facility])
[2021-02-05] MEDS ORDERED: OMEP10CASR PO (18:04)
== END 2021-02-05 17:44 | disposition admitted as inpatient to this hospital (09) ==
LOC: M ED 16:23
DX: S92.354A Nondisplaced fracture of fifth metatarsal bone, right foot, initial encounter for closed fracture (principal); W10.9XXA Fall (on) (from) unspecified stairs and steps, initial encounter; Y92.099 Unspecified place in other non-institutional residence as the place of occurrence of the external cause; Y93.89 Activity, other specified; Y99.9 Unspecified external cause status; Z3A.34 34 weeks gestation of pregnancy

== ENCOUNTER 2021-02-05 17:41 | Outpatient (CLI) | payer BC, OTHER ==
[~2021-02-05] VITALS: Ht 167.6 cm; Wt 105.1 kg
[2021-02-05] MEDS ORDERED: OMEP10CASR PO (18:04)
[2021-02-05 18:05] VITALS: BP 128/79
[2021-02-05] MEDS ORDERED: HOME MED LIST COMPLETE! XX SCH (18:05)
--- NOTE | 2021-02-05 18:42 | IPNPDOC ---
Text Note Date of Service The patient was seen on 02/05/21. NOTE S: 25 yo female at 34 weeks presents from the ER after falling down 5 steps and landing on her back. She was diagnosed with a fractured right metatarsal in the ER. She presents to triage for monitoring. No abdominal pain. no bleeding. good movement. O: AVSS NAD Abd: NT, gravid FHT: Category I toco: none ext: NT A/P 25 yo female at 34 weeks s/p fall down stairs Discharge home with reassuring testing F-u with orthopedics next week fu office as scheduled. RUBY KENT MD Feb 05, 2021 18:42
== END 2021-02-05 18:45 | disposition home or self-care (01) ==
LOC: M LDO 17:41
PROVIDERS: ATTEND Specialist
DX: O99.893 Other specified diseases and conditions complicating puerperium (principal); S92.301D Fracture of unspecified metatarsal bone(s), right foot, subsequent encounter for fracture with routine healing; Z3A.34 34 weeks gestation of pregnancy; W10.9XXD Fall (on) (from) unspecified stairs and steps, subsequent encounter; Y92.9 Unspecified place or not applicable; Y93.9 Activity, unspecified; Y99.9 Unspecified external cause status
CPT/HCPCS: 59025; G0378; G0463

== ENCOUNTER → 2021-02-18 | Outpatient (REF) | payer BC, OTHER ==
[~2021-02-18] MED LIST changes: +OMEP10CASR PO
== END ==
LOC: M LAB REF 13:25
PROVIDERS: ATTEND Advanced Practice Midwife
DX: O99.213 Obesity complicating pregnancy, third trimester (principal)

== ENCOUNTER → 2021-03-01 | Outpatient (CLI) | payer BC, OTHER ==
[2021-03-01 14:21] LABS: ALBUMIN 2.9 GM/DL (3.2-5.2); ALT/SGPT 19 U/L (12-78); BILIRUBIN,DIRECT < 0.1 MG/DL (0.0-0.2); BILIRUBIN,TOTAL 0.3 MG/DL (0.2-1.0); TOTAL PROTEIN 6.7 GM/DL (6.4-8.2)
== END ==
LOC: M PLALAB 09:55
PROVIDERS: ATTEND Advanced Practice Midwife
DX: R21 Rash and other nonspecific skin eruption (principal)

== ENCOUNTER 2021-03-09 13:35 | Inpatient (IN) | payer BC, OTHER ==
[2021-03-09] VITALS (10 sets, daily range): BP systolic 111–148; BP diastolic 59–89
[~2021-03-09] VITALS: Ht 167.6 cm; Wt 109.5 kg
--- OUTSIDE RECORDS SUMMARY | 2021-03-09 13:38 | CCD ---
Author Author [facility] Organization [facility] Address Unknown Phone Unavailable Care Team Providers Care Leather Products Supervisor Name Role Phone Gloria Toscano Unavailable PROBLEMS Type Condition ICD9-CM Code [id number] Code Onset Dates Condition S tatus W/U Status Risk SNOMED Code Notes Problem Abdominal pain, epigastric 789.06 Active confirmed 66049866 Problem Rash and other nonspecific skin eruption 782.1 Active confirmed 257772079 Problem Other acne 706.1 Active confirmed 02513616 Problem Chronic migraine without aur a, without mention of intractable migraine without mention of status migrainosus 346.70 Active co nfirmed 709257613093503 Problem Asthma 493.90 Active confirmed 043036674 Problem Temporomandibular joint disorder (TMJ) 524.60 A ctive confirmed 07752787 Problem Clostridium difficile diarrhea A04.72 Active c onfirmed 1215890370842 Problem Allergic rhinitis, cause unspecified 477.9 Act abdon confirmed 98303273 Problem Obesity affecting in second trimester O9 9.212 Active confirmed 542035876605 Problem Other obesity due to excess calories E66.09 Act abdon confirmed 867308710 Problem Obesity complicating in second trimester O99.212 Active confirmed 525170899853 Problem Obesity E66.9 Active confirmed 471288004 Problem Supervision of other normal Z34.80 Ac tive confirm 236132102 Problem BMI 37.0-37.9, adult Z68.37 Active confirmed 478709947 Problem Episode of heavy vaginal bleeding N93.9 Active confirmed 054694327 Problem Obesity, unspecified E66.9 Active confirmed 338549895 Problem BMI 33.0-33.9,adult Z68.33 Active confirmed 926595370 Problem Obesity complicating in third trimester O99.213 Active confirmed Problem Acid reflux K21.9 Active confirmed 28521511 9 ALLERGIES Allergen (clinical drug ingredient) Drug/Non Drug Allergy do cumented on EMR Reaction Allergy Type Onset Date Status Ortho Tri-Cyclen (28) made her feel depressed Drug Allergy Active amitriptyline Amitriptyline HCl([facility] Code:[address]-07) Rash Dr hooks Allergy Active ENCOUNTERS from 1997 to 2021-03-05 Encounter Location Date Provider Diagnosis [facility] [address] [facility] [phone] [place] [address] Feb, Gloria [facility] IMMUNIZATIONS Vaccine Route Administration Date Status Varicella 0.5mL VariVax Unknown October 29, 2002 Administ ered Varicella 0.5mL VariVax Unknown Dec 06, 2008 Administ ered [id number]-VNY-DKU 0.5mL (Pentacel) Unknown 1997 Ad ministered NRTB-KYJ-IZI 0.5mL (Pentacel) Unknown Jan 12, 1998 Ad ministered TDAP Unknown Dec 08, 2008 Administered Gardasil IM Intramuscular Feb 27, 2012 Administered Gardasil IM Intramuscular May 02, 2012 Administered DTAP 0.5mL Infanrix Unknown July 29, 1998 Administered XNQO-GKJ-XLM 0.5mL (Pentacel) Unknown Mar 08, 1998 Ad ministered Gardasil IM Intramuscular September 19, 2012 Administered [...] Education Language: Question Answer Notes Languages spoken: [place] Domestic Violence: Question Answer Notes Status: Single [...] a day for 30 day(s) Dec, Active Complete 14-0.4 MG 1 tablet Orally Once a day for 30 day(s) Active Benadryl Allergy 25 MG 1 tablet at bedtime as neede d Orally Once a day for 30 day(s) Jun, Not-Taking PROCEDURES No Information RESULTS No Results REASON FOR VISIT No Information MEDICAL (GENERAL) HISTORY Type Description Date Medical History migraines - Dr. Adams in [place] Medical History asthma - exercise induced Medical [...] Information ASSESSMENTS No Information PLAN OF TREATMENT Next Appt Details Provider Name:Julia Larsen, 2021-02- 7 11:20:00 AM, [address] [facility], , [place], [address], Insurance Providers Payer Name Payer Address Payer Phone Insured Name Patient Relati onship to Insured Coverage Start Date Coverage End Date [facility] [address] [facility] [id number] TYLER KENNY [id number]
--- OUTSIDE RECORDS SUMMARY | 2021-03-09 13:39 | CCD | Continuity of Care Document ---
Author Author Nelia SOOD DO Organization Unknown Address [address] [place] [address] Phone [phone] Care Team Providers Care Manager Industrial Name Role Phone Steffany Aviles P.A.-C. AUTM [phone] Problems Description No Information Available Social History Type Date Description Comments Sex Unknown ETOH Use Denies alcohol use Tobacco Use Start: Unknown Non Smoker Recreational Drug Use Denies Drug Use Allergies and adverse reactions Description No Known Drug Allergies Medications Active Medications SIG Qnty Indications Ordering Provide r Date 27-0.8mg Tablets take 1 tablet by mouth as directed Unknown Immunizations Description No Information Available Vital Signs Date Vital Result Comment 02/08/2021 7:57am Body Temperature 97.3 F Results Description No Information Available Procedures Description No Information Available Medical Devices Description No Information Available Encounters Description No Information Available Assessments Date Code Description Provider 02/08/2021 S92.354A Nondisplaced fractur e of fifth metatarsal bone, right foot, initial encounter for closed fracture Norris Sood DO Plan of Treatment 02/08/2021 - Norris Sood DO* S92.354A Nondisplaced fracture of fifth metatarsal bone, right foot, initial encounter for closed fracture* New Orders:* Durable Medical Equipment, Ordered: 02/08/21 * Comments:* 1. Weightbearing as tolerated cam boot, stiff sole2. Follow-up 3 weeks repeat x-rays3. Work note provided off work until further notice Functional Status Description No Information Available Mental Status Description No Information Available Referrals Description No Information Available
--- OUTSIDE RECORDS SUMMARY | 2021-03-09 13:39 | CCD ---
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 Operator Name Role Phone Glroia Toscano Unavailable PROBLEMS Type Condition ICD9-CM Code MSU65-MG Code Onset Dates Condition S tatus W/U Status Risk SNOMED Code Notes Problem Abdominal pain, epigastric 789.06 Active confirmed 95012738 Problem Rash and other nonspecific skin eruption 782.1 Active confirmed 129886920 Problem Other acne 706.1 Active confirmed 90419364 Problem Chronic migraine without aur a, without mention of intractable migraine without mention of status migrainosus 346.70 Active co nfirmed 137675279095736 Problem Asthma 493.90 Active confirmed 982395333 Problem Temporomandibular joint disorder (TMJ) 524.60 A ctive confirmed 56737312 Problem Clostridium difficile diarrhea A04.72 Active c onfirmed 3451273996451 Problem Allergic rhinitis, cause unspecified 477.9 Act abdon confirmed 51499581 Problem Obesity affecting in second trimester O9 9.212 Active confirmed 037689638328 Problem Other obesity due to excess calories E66.09 Act abdon confirmed 433300182 Problem Obesity complicating in second trimester O99.212 Active confirmed 171537408343 Problem Obesity E66.9 Active confirmed 138715536 Problem Supervision of other normal Z34.80 Ac tive confirm 094518342 Problem BMI 37.0-37.9, adult Z68.37 Active confirmed 627903055 Problem Episode of heavy vaginal bleeding N93.9 Active confirmed 456816580 Problem Obesity, unspecified E66.9 Active confirmed 692882484 Problem BMI 33.0-33.9,adult Z68.33 Active confirmed 343719041 Problem Obesity complicating in third trimester O99.213 Active confirmed Problem Acid reflux K21.9 Active confirmed 19740233 9 ALLERGIES Allergen (clinical drug ingredient) Drug/Non Drug Allergy do cumented on EMR Reaction Allergy Type Onset Date Status Ortho Tri-Cyclen (28) made her feel depressed Drug Allergy Active amitriptyline Amitriptyline HCl([facility] Code:[address]-88) Rash Dr hooks Allergy Active ENCOUNTERS from 1997 to 2021-03-04 Encounter Location Date Provider Diagnosis [facility] [address] [facility] [phone] [place] [address] 09 Feb, [facility] Obesity complicat ing in third trimester O99.213 ; Obesity E66.9 ; 37 weeks gestation of Z3A.37 and Rash and other nonspecific skin eruption R21 IMMUNIZATIONS Vaccine Route Administration Date Status Gardasil IM Intramuscular Feb 27, 2012 Administered Gardasil IM Intramuscular May 02, 2012 Administered Gardasil IM Intramuscular September 19, 2012 Administered ODJM-EFG-MQP 0.5mL (Pentacel) Unknown 1997 Ad ministered TDAP Unknown Dec 08, 2008 Administered Varicella 0.5mL VariVax Unknown October 29, 2002 Administ ered Varicella 0.5mL VariVax Unknown Dec 06, 2008 Administ ered DTAP 0.5mL Infanrix Unknown July 29, 1998 Administered VMUY-EJJ-MIU 0.5mL (Pentacel) Unknown Jan 12, 1998 Ad ministered AKBT-ZDO-LDT 0.5mL (Pentacel) Unknown Mar 08, 1998 Ad [...] Education Language: Question Answer Notes Languages spoken: Albanian Domestic Violence: Question Answer Notes Status: Single Drug and Alcohol Question Answer Notes Total Score: 0 Interpretation: No problems reported Alcohol Screening: Question Answer Notes Did you have a drink containing alcohol in the past year? No Points 0 Interpretation Negative Tobacco Use: Question Answer Notes Are you a: never smoker never smoker REASON FOR REFERRAL No Information VITAL SIGNS Weight 238.4 lbs Feb, Weight-kg 108.14 kg Feb, Height 66 in Feb, BMI 38.479 kg/m2 Feb, Blood pressure systolic 120 mm Hg Feb, Blood pressure diastolic 70 mm Hg Feb, MEDICATIONS Medication SIG (Take, Route, Frequency, Duration) [...] day(s) Jun, Not-Taking PROCEDURES No Information RESULTS Component Value Reference Range LIVER PROFILE Reviewed date:03/01/2021 16:05:38 Interpretation: Performing Lab:[facility], [facility] [address] [address] , ,[place] [address] AST/SGOT 12 7-37 ALT/SGPT 19 12-78 ALKALINE PHOSPHATASE 109 45-117 BILIRUBIN,TOTAL 0.3 0.2-1.0 BILIRUBIN,DIRECT < 0.1 0.0-0.2 TOTAL PROTEIN 6.7 6.4-8.2 ALBUMIN 2.9 3.2-5.2 ALBUMIN/GLOBULIN RATIO 0.8 1.2-2.2 BILE ACIDS FRACTIONATED Reviewed date:03/03/2021 09:32:24 Interpretation: Performing Lab:[facility], [facility] [address] [facility] [address] , ,[place] [address] BILE ACIDS FRACTIONATED 1.3 0.0-10.0 REASON FOR VISIT 2 wk pn per robbie MEDICAL (GENERAL) HISTORY Type Description Date Medical History migraines - Dr. Adams in [place] Medical History asthma - exercise induced Medical [...] Notes Treatment Notes Treatm ent Clinical Notes Feb, Obesity complicating pregnan cy in third trimester (ICD-10 - O99.213) Feb, Obesity (ICD-10 - E66.9) Feb, 37 weeks gestation of (ICD-10 - Z3A.37 ) Feb, Rash and other nonspecific skin eruption (ICD-10 - R21) PLAN OF TREATMENT Next Appt Details 1 Week Reason:- Routine follow up Provider Name:Julia Larsen, 2021-02- 7 11:20:00 AM, [address] [facility], , [place], [address], Follow Up:1 Week- Routine follow up Insurance Providers Payer Name Payer Address Payer Phone Insured Name Patient Relati onship to Insured Coverage Start Date Coverage End Date [facility] [address] [facility] [id number] [phone] [employer]NY [id number]
--- OUTSIDE RECORDS SUMMARY | 2021-03-09 13:39 | CCD ---
Author Author [facility] Organization [facility] Address Unknown Phone Unavailable Care Team Providers Care Junior Software Developer Name Role Phone Julia Larsen Unavailable PROBLEMS Type Condition ICD9-CM Code OBU59-DS Code Onset Dates Condition S tatus W/U Status Risk SNOMED Code Notes Problem Abdominal pain, epigastric 789.06 Active confirmed 94579243 Problem Rash and other nonspecific skin eruption 782.1 Active confirmed 037661786 Problem Other acne 706.1 Active confirmed 15516318 Problem Chronic migraine without aur a, without mention of intractable migraine without mention of status migrainosus 346.70 Active co nfirmed 602295023102830 Problem Asthma 493.90 Active confirmed 683174878 Problem Temporomandibular joint disorder (TMJ) 524.60 A ctive confirmed 39283254 Problem Episode of heavy vaginal bleeding N93.9 Active confirmed 739161216 Problem Supervision of other normal Z34.80 Ac tive confirm 430443423 Problem Other obesity due to excess calories E66.09 Act abdon confirmed 223667041 Problem Obesity complicating in third trimester O99.213 Active confirmed Problem Clostridium difficile diarrhea A04.72 Active c onfirmed 9992027730401 Problem Acid reflux K21.9 Active confirmed 46165398 9 Problem Allergic rhinitis, cause unspecified 477.9 Act abdon confirmed 18215177 Problem Obesity affecting in second trimester O9 9.212 Active confirmed 870152636980 Problem BMI 33.0-33.9,adult Z68.33 Active confirmed 028027810 Problem Obesity, unspecified E66.9 Active confirmed 346487274 Problem Obesity complicating in second trimester O99.212 Active confirmed 818346256894 ALLERGIES Allergen (clinical drug ingredient) Drug/Non Drug Allergy do cumented on EMR Reaction Allergy Type Onset Date Status Ortho Tri-Cyclen (28) made her feel depressed Drug Allergy Active amitriptyline Amitriptyline HCl([facility] Code:[address]-62) Rash Dr hooks Allergy Active ENCOUNTERS from 1997 to 2021-02-15 Encounter Location Date Provider Diagnosis [facility] [address] [place] [facility] [phone] [place] [address] Jan, Julia Larsen Obesity complicating in third trimester O99.213 and 34 weeks gestation of Z3A.34 IMMUNIZATIONS Vaccine Route Administration Date Status BQLH-OTA-BYQ 0.5mL (Pentacel) Unknown 1997 Ad ministered WQSA-IRS-VAU 0.5mL (Pentacel) Unknown Jan 12, 1998 Ad ministered ZMQI-ZTU-LVZ 0.5mL (Pentacel) Unknown Mar 08, 1998 Ad ministered Gardasil IM Intramuscular Feb 27, 2012 Administered TDAP Unknown Dec 08, 2008 Administered Varicella [...] Education Language: Question Answer Notes Languages spoken: Guyanese Domestic Violence: Question Answer Notes Status: Single Drug and Alcohol Question Answer Notes Total Score: 0 Interpretation: No problems reported Alcohol Screening: Question Answer Notes Did you have a drink containing alcohol in the past year? No Points 0 Interpretation Negative Tobacco Use: Question Answer Notes Are you a: never smoker never smoker REASON FOR REFERRAL No Information VITAL SIGNS Weight 235.6 lbs Jan, Weight-kg 106.87 kg Jan, Height 66 in Jan, BMI 38.02 kg/m2 Jan, Blood pressure systolic 118 mm Hg Jan, Blood pressure diastolic 76 mm Hg Jan, MEDICATIONS Medication SIG (Take, [...] RESULTS No Results REASON FOR VISIT 2 WK PN MEDICAL (GENERAL) HISTORY Type Description Date Medical History migraines - Dr. Adams in [place] Medical History asthma - exercise induced Medical [...] Treatment Notes Treatm ent Clinical Notes Jan, 34 weeks gestation of (ICD-10 - Z3A.34 ) Jan, Obesity complicating pregnan cy in third trimester (ICD-10 - O99.213) PLAN OF TREATMENT Next Appt Details 1-2 weeks Reason: Provider Name:Sade Valentino 2021-02-18 08:40:00 AM, [address] [facility], , [place], [address], Follow Up:1-2 weeksPrenatal Insurance Providers Payer Name Payer Address Payer Phone Insured Name Patient Relati onship to Insured Coverage Start Date Coverage End Date [facility] [address] [facility] [id number] [employer]ENNY [id number]
--- OUTSIDE RECORDS SUMMARY | 2021-03-09 13:39 | CCD ---
Author Author [facility] Organization [facility] Address Unknown Phone Unavailable Support Name Relationship Address Phone ARC Next Of Kin [address] [place] [address] ABELINO [place] [address] SKH* Next Of Kin [address] [place] [address] UE Next Of Kin Unknown Unavailable STUDENT Next Of Kin [address] [place] [address] TOMY SERNA Next Of Kin [address] [place] [address] ADA, E AMITA Next Of Kin [address] [place] [address] ADA, E AMITA ECON [address] [place] [address] [phone] [place] [address] Unavailable Tomy Serna ECON [address] [place] [address] Unavailable Re-disclosure Warning The records that you [...] is protected by Article 27-F of the [facility] Public Health law. If you continue you may have access to information: Regarding HIV / AIDS; Provided by facilities licensed or operated by the [facility] Office of Mental Health; or Provided by the [facility] Office for People With Developmental Disabilities. If such information is present, then the following [facility] mandated warning applies: This information has been [...] law may result in a fine or mcc sentence or both. A general authorization for the release of medical or other information is NOT sufficient authorization for further disc losure. Encounters Encounter Providers Location Date Indications Data Source(s ) Unknown [address] [facility] [address] 03/04/2021 12:00:00 AM EST eCW1 ([facility]) ( ESTOB) [facility] OB [address] [place] [address] 03/01/2021 12:00:00 AM EST eCW1 ([facility]) ( ESTOB) [facility] Est OB [address] [place] [address] 02/11/2021 12:00:00 AM EDT eCW1 ([facility]) ( ESTOB) [facility] Est OB [address] [place] [address] 01/28/2021 12:00:00 AM EDT eCW1 ([facility]) [place] [address] [facility] [address] 01/18/2021 12:00:00 AM EDT eCW1 ([facility]) ( ESTOB) [facility] Est OB [address] [place] [address] 01/14/2021 12:00:00 AM EDT eCW1 ([facility]) ( ESTOB) [facility] OB [address] [place] [address] 12/28/2020 12:00:00 AM EDT eCW1 ([facility]) (WC ESTOB) [facility] [address] [place] [address] 12/09/2020 12:00:00 AM EDT eCW1 ([facility]) (WC ESTOB) [facility] [address] [place] [address] 11/11/2020 12:00:00 AM EDT eCW1 ([facility]) (WC ESTOB) [facility] [address] [place] [address] 10/15/2020 12:00:00 AM EDT eCW1 ([facility]) [place] [address] [facility] [address] 10/13/2020 12:00:00 AM EDT eCW1 ([facility]) Unknown [address] [facility] [place] [address] 10/06/2020 12:00:00 AM EDT eCW1 ([facility]) (WC ESTOB) [facility] [address] [place] [address] 09/17/2020 12:00:00 AM EDT eCW1 ([facility]) (WC ESTOB) [facility] [address] [place] [address] 08/23/2020 12:00:00 AM EDT eCW1 ([facility]) (WC ESTOB) enter Est OB [address] [place] [address] 08/03/2020 12:00:00 AM EDT eCW1 ([facility]) Immunizations Vaccine Date Status Description Data Source(s) Tdap 12/28/2020 09:54:00 AM EDT completed e CW1 ([facility]) Tdap 12/28/2020 09:54:00 AM EDT completed e CW1 ([facility]) Tdap 12/28/2020 09:54:00 AM EDT completed e CW1 ([facility]) Tdap 12/28/2020 09:54:00 AM EDT completed e CW1 ([facility]) Tdap 12/28/2020 09:54:00 AM EDT completed e CW1 ([facility]) Tdap 12/28/2020 09:54:00 AM EDT completed e CW1 ([facility]) Tdap 12/28/2020 09:54:00 AM EDT completed e CW1 ([facility]) Tdap 12/28/2020 09:54:00 AM EDT completed e CW1 ([facility]) Medications Medication Brand Name Start Date [...] EDT active Omeprazo le 20 MG eCW1 ([facility]) Omeprazole 20 MG Delayed Release Oral Capsule Omeprazole 20 MG 01/14/2021 12:00:00 AM EDT active Omeprazo le 20 MG eCW1 ([facility]) Omeprazole 20 MG Delayed Release Oral Capsule Omeprazole 20 MG 01/14/2021 12:00:00 AM EDT active Omeprazo le 20 MG eCW1 ([facility]) Omeprazole 20 MG Delayed Release Oral Capsule Omeprazole 20 MG 01/14/2021 12:00:00 AM EDT active Omeprazo le 20 MG eCW1 ([facility]) Omeprazole 20 MG Delayed Release Oral Capsule Omeprazole 20 MG 01/14/2021 12:00:00 AM EDT active Omeprazo le 20 MG eCW1 ([facility]) Omeprazole 20 MG Delayed Release Oral Capsule Omeprazole 20 MG 01/14/2021 12:00:00 AM EDT active Omeprazo le 20 MG eCW1 ([facility]) Omeprazole 20 MG Delayed Release Oral Capsule Omeprazole 20 MG 01/14/2021 12:00:00 AM EDT active Omeprazo le 20 MG eCW1 ([facility]) Omeprazole 20 MG Delayed Release Oral Capsule Omeprazole 20 MG 01/14/2021 12:00:00 AM EDT active Omeprazo le 20 MG eCW1 ([facility]) Insurance Providers Payer name Policy type / Coverage type Policy ID Covered constitution party ID Covered constitution party's relationship to tomas Policy Tomas Plan Information [employer] [id number] FA2 [id number] [facility] [id number] FA2 [id number] [facility] [id number] FA2 [id number] [employer] [id number] FA2 [id number] [employer] [id number] FA2 [id number] [employer] [id number] FA2 [id number] [facility] O [id number] S [id number] [employer] [id number] FA2 [id number] [facility] [id number] FA2 [id number] ANSI-Commercial [id number] ANSI-Commercial [id number] ANSI-Commercial [id number] ANSI-Commercial [id number] ANSI-Commercial [id number] ANSI-Commercial [id number] ANSI-Commercial [id number] ANSI-Commercial [id number] ANSI-Commercial [id number] ANSI-Commercial [id number] ANSI-Commercial [id number] ANSI-Commercial [id number] ANSI-Commercial [id number] [facility] [id number] FA2 [id number] ANSI-Commercial [id number] [employer] [id number] FA2 [id number] [facility] [id number] FA2 [id number] ANSI-Commercial [id number] [facility] [id number] FA2 [id number] [facility] DIV [id number] FA2 [id number] [facility] Commercial [id number] Family Dependent [id number] Problems, Conditions, and Diagnoses Code Display Name Description Problem Type Effective Dates Data Source(s) Z68.37 [id number] BMI 37.0-37.9, adult Problem 02/18/2021 12:0 0:00 AM EDT eCW1 ([facility]) E66.9 [id number] Obesity Problem 02/18/2021 12:00:00 AM ED T eCW1 ([facility]) O99.213 Obesity complicating , third tr imester Obesity complicating in third trimester Problem 01/26/2021 12:00:00 AM EDT eCW1 ([facility]) K21.9 [id number] Acid reflux Problem 01/14/2021 12:00:00 AM E DT eCW1 ([facility]) Z68.33 [id number] BMI 33.0-33.9,adult Problem 10/15/2020 12:00 :00 AM EDT eCW1 ([facility]) E66.9 [id number] Obesity, unspecified Problem 10/15/2020 12:0 0:00 AM EDT eCW1 ([facility]) O99.212 [id number] Obesity complicating in second trimester Problem 10/15/2020 12:00:00 AM EDT eCW1 ([facility]) E66.09 [id number] Other obesity due to excess calories Prob karen 09/17/2020 12:00:00 AM EDT eCW1 ([facility]) O99.212 [id number] Obesity affecting in second tri mester Problem 09/16/2020 12:00:00 AM EDT eCW1 ([facility]) Z34.80 care Supervision of other normal P kayla 02/02/2020 12:00:00 AM EDT eCW1 ([facility]) Surgeries/Procedures Procedure Description Date Indications Data Source(s) TDAP VACCINE 7/> YR IM 12/28/2020 12:00:00 AM EDT eCW1 ([facility]) Results ID Date Data Source BILE ACIDS FRACTIONATED 03/01/2021 12:00:00 AM EST eCW1 ([facility]) Name Value Range Interpretation Code Description Data Chasity rce(s) Supporting Document(s) 1.3 0.0-10.0 BILE ACIDS FRACTIONATED eCW1 ( [facility]) ID Date Data Source LIVER PROFILE 03/01/2021 12:00:00 AM EST eCW1 ([facility]) Name Value Range Interpretation Code Description Data Chasity rce(s) Supporting Document(s) 19 12-78 ALT/SGPT eCW1 ([facility]) 12 7-37 AST/SGOT eCW1 ([facility]) 109 45-117 ALKALINE PHOSPHATASE eCW1 ([facility]) < 0.1 0.0-0.2 BILIRUBIN,DIRECT eCW1 ([facility]) 0.3 0.2-1.0 BILIRUBIN,TOTAL eCW1 ([facility]) 2.9 3.2-5.2 ALBUMIN eCW1 ([facility]) 6.7 6.4-8.2 TOTAL PROTEIN eCW1 ([facility]) 0.8 1.2-2.2 ALBUMIN/GLOBULIN RATIO eCW1 ([facility]) ID Date Data Source [id number] 08/03/2020 12:00:00 AM EDT eCW1 ([facility]) Name Value Range Interpretation Code Description Data Chasity rce(s) Supporting Document(s) Hemoglobin A1c/Hemoglobin.total in Blood 5.0 HEMOGLOBIN A1c eCW1 ([facility]) ID Date Data Source HBSAG 08/03/2020 12:00:00 AM EDT eCW1 ([facility]) Name Value Range Interpretation Code Description Data Chasity rce(s) Supporting Document(s) NEGATIVE NEGATIVE HBsAg eCW1 ([facility]) ID Date Data Source HEPATITIS C ANTIBODY INDEX 08/03/2020 12:00:00 AM EDT eCW1 ( [facility]) Name Value Range Interpretation Code Description Data Chasity rce(s) Supporting Document(s) 0.0 <0.8 HEPATITIS C VIRUS WILFRIDO INDEX eC W1 ([facility]) ID Date Data Source RUBELLA IMMUNE STATUS IgG 08/03/2020 12:00:00 AM EDT eCW1 ([facility]) Name Value Range Interpretation Code Description Data Chasity rce(s) Supporting Document(s) IMMUNE IMMUNE RUBELLA IgG QUALITATIVE eCW1 ( [facility]) ID Date Data Source SYPHILIS ANTIBODY (RPR SCREEN) 08/03/2020 12:00:00 AM EDT eC W1 ([facility]) Name Value Range Interpretation Code Description Data Chasity rce(s) Supporting Document(s) NONREACTIVE NONREACTIVE SYPHILIS eCW1 ([facility]) ID Date Data Source [id number] 08/03/2020 12:00:00 AM EDT eCW1 ([facility]) Name Value Range Interpretation Code Description Data Chasity rce(s) Supporting Document(s) HIV 1&2 ANTIBODY SCREEN eCW1 ( [facility]) ID Date Data Source FREE T4 & TSH PANEL 08/03/2020 12:00:00 AM EDT eCW1 ([facility]) Name Value Range Interpretation Code Description Data Chasity rce(s) Supporting Document(s) 0.95 0.76-1.46 FREE T4 eCW1 ([facility]) 2.910 0.358-3.740 THYROID STIMULATING HORM ONE eCW1 ([facility]) ID Date Data Source CBC - Complete Blood Count 08/03/2020 12:00:00 AM EDT eCW1 ( [facility]) Name Value Range Interpretation Code Description Data Chasity rce(s) Supporting Document(s) 4.60 4.00-5.40 RED BLOOD COUNT eCW1 ([facility]) 11.2 4.0-10.0 WHITE BLOOD COUNT eCW1 ([facility]) 41.7 36.0-47.0 HEMATOCRIT eCW1 ([facility]) 13.5 12.0-15.5 HEMOGLOBIN eCW1 ([facility]) 90.7 80.0-96.0 MEAN CORPUSCULAR VOLUME e CW1 ([facility]) 12.1 11.5-14.5 RED CELL DISTRIBUTION WID TH eCW1 ([facility]) 29.3 27.0-33.0 MEAN CORPUSCULAR HEMOGLOB IN eCW1 ([facility]) 32.4 32.0-36.5 MEAN CORPUSCULAR HGB CONC eCW1 ([facility]) 415 150-450 PLATELET COUNT, AUTOMATED eCW1 ([facility]) ID Date Data Source Type and Screen Prenatal1 08/03/2020 12:00:00 AM EDT eCW1 ([facility]) Name Value Range Interpretation Code Description Data Chasity rce(s) Supporting Document(s) NEGATIVE AB SCREEN PNP1 GEL (VIS) eCW1 ([facility]) Procedure Social History Code Duration Value Status Description Data Source(s ) Smoking 03/01/2021 12:00:00 AM EST UNK completed eCW1 ([facility]) Smoking 03/01/2021 12:00:00 AM EST UNK completed eCW1 ([facility]) Smoking 02/11/2021 12:00:00 AM EDT UNK completed eCW1 ([facility]) Smoking 01/28/2021 12:00:00 AM EDT UNK completed eCW1 ([facility]) Smoking 01/28/2021 12:00:00 AM EDT UNK completed eCW1 ([facility]) Smoking 01/06/2021 12:00:00 AM EDT UNK completed eCW1 ([facility]) Smoking 01/06/2021 12:00:00 AM EDT UNK completed eCW1 ([facility]) Smoking 01/06/2021 12:00:00 AM EDT UNK completed eCW1 ([facility]) Smoking 11/10/2020 12:00:00 AM EDT UNK completed eCW1 ([facility]) Smoking 10/12/2020 12:00:00 AM EDT UNK completed eCW1 ([facility]) Smoking 10/12/2020 12:00:00 AM EDT UNK completed eCW1 ([facility]) Smoking 09/17/2020 12:00:00 AM EDT UNK completed eCW1 ([facility]) Smoking 09/17/2020 12:00:00 AM EDT UNK completed eCW1 ([facility]) Smoking 08/23/2020 12:00:00 AM EDT UNK completed eCW1 ([facility]) Smoking 08/03/2020 12:00:00 AM EDT UNK completed eCW1 ([facility]) Vital Signs ID Date Data Source UNK Name Value Range Interpretation Code Description Data Source(s) Body weight 238.4 [lb_av] 238.4 [lb_av] eCW1 ([facility]) Body weight 108.14 kg 108.14 kg W1 ([facility]) Body height 66 [in_i] 66 [in_i] eCW1 ([facility]) Body mass index (BMI) [Ratio] 38.479 kg/m2 38.4 79 kg/m2 W1 ([facility]) Systolic blood pressure 120 mm[Hg] 120 mm[Hg] e CW1 ([facility]) Diastolic blood pressure 70 mm[Hg] 70 mm[Hg] eCW1 ([facility]) Body weight 235.6 [lb_av] 235.6 [lb_av] eCW1 ([facility]) Body weight 106.87 kg 106.87 kg eCW1 ([facility]) Body height 66 [in_i] 66 [in_i] eCW1 ([facility]) Body mass index (BMI) [Ratio] 38.02 kg/m2 38.02 kg/m2 W1 ([facility]) Systolic blood pressure 118 mm[Hg] 118 mm[Hg] e CW1 ([facility]) Diastolic blood pressure 76 mm[Hg] 76 mm[Hg] eCW1 ([facility]) Body temperature 97.3 [degF] 97.3 [degF] MEDENT ([facility] ) Body weight 227 [lb_av] 227 [lb_av] eCW1 ([facility]) Body weight 102.97 kg 102.97 kg eCW1 ([facility]) Body height 66 [in_i] 66 [in_i] eCW1 ([facility]) Body mass index (BMI) [Ratio] 36.639 kg/m2 36.6 39 kg/m2 eCW1 ([facility]) Systolic blood pressure 120 mm[Hg] 120 mm[Hg] e CW1 ([facility]) Diastolic blood pressure 74 mm[Hg] 74 mm[Hg] eCW1 ([facility]) Body weight 225 [lb_av] 225 [lb_av] eCW1 ([facility]) Body weight 225 [lb_av] 225 [lb_av] eCW1 ([facility]) Body height 66 [in_i] 66 [in_i] eCW1 ([facility]) Body mass index (BMI) [Ratio] 36.316 kg/m2 36.3 16 kg/m2 eCW1 ([facility]) Systolic blood pressure 122 mm[Hg] 122 mm[Hg] e CW1 ([facility]) Diastolic blood pressure 68 mm[Hg] 68 mm[Hg] eCW1 ([facility]) Systolic blood pressure 118 mm[Hg] 118 mm[Hg] e CW1 ([facility]) Body weight 222.4 [lb_av] 222.4 [lb_av] eCW1 ([facility]) Body weight 100.88 kg 100.88 kg eCW1 ([facility]) Body height 66 [in_i] 66 [in_i] eCW1 ([facility]) Body mass index (BMI) [Ratio] 35.896 kg/m2 35.8 96 kg/m2 eCW1 ([facility]) Diastolic blood pressure 76 mm[Hg] 76 mm[Hg] eCW1 ([facility]) Body weight 219 [lb_av] 219 [lb_av] eCW1 ([facility]) Body weight 99.34 kg 99.34 kg eCW1 ([facility]) Body height 66 [in_i] 66 [in_i] eCW1 ([facility]) Body mass index (BMI) [Ratio] 35.348 kg/m2 35.3 48 kg/m2 eCW1 ([facility]) Systolic blood pressure 128 mm[Hg] 128 mm[Hg] e CW1 ([facility]) Diastolic blood pressure 76 mm[Hg] 76 mm[Hg] eCW1 ([facility]) Body weight 212 [lb_av] 212 [lb_av] eCW1 ([facility]) Body weight 96.16 kg 96.16 kg eCW1 ([facility]) Body height 66 [in_i] 66 [in_i] eCW1 ([facility]) Body mass index (BMI) [Ratio] 34.218 kg/m2 34.2 18 kg/m2 eCW1 ([facility]) Systolic blood pressure 108 mm[Hg] 108 mm[Hg] e CW1 ([facility]) Diastolic blood pressure 72 mm[Hg] 72 mm[Hg] eCW1 ([facility]) Body weight 207.8 [lb_av] 207.8 [lb_av] eCW1 ([facility]) Body height 66 [in_i] 66 [in_i] eCW1 ([facility]) Body mass index (BMI) [Ratio] 33.54 kg/m2 33.54 kg/m2 eCW1 ([facility]) Systolic blood pressure 120 mm[Hg] 120 mm[Hg] e CW1 ([facility]) Diastolic blood pressure 78 mm[Hg] 78 mm[Hg] eCW1 ([facility]) Body weight 206.6 [lb_av] 206.6 [lb_av] eCW1 ([facility]) Body height 66 [in_i] 66 [in_i] eCW1 ([facility]) Body mass index (BMI) [Ratio] 33.346 kg/m2 33.3 46 kg/m2 eCW1 ([facility]) Systolic blood pressure 122 mm[Hg] 122 mm[Hg] e CW1 ([facility]) Diastolic blood pressure 84 mm[Hg] 84 mm[Hg] eCW1 ([facility]) Body weight 206.8 [lb_av] 206.8 [lb_av] eCW1 ([facility]) Body weight 93.8 kg 93.8 kg eCW1 ([facility]) Body height 66 [in_i] 66 [in_i] eCW1 ([facility]) Body mass index (BMI) [Ratio] 33.378 kg/m2 33.3 78 kg/m2 eCW1 ([facility]) Systolic blood pressure 124 mm[Hg] 124 mm[Hg] e CW1 ([facility]) Diastolic blood pressure 84 mm[Hg] 84 mm[Hg] eCW1 ([facility]) Body weight 203 [lb_av] 203 [lb_av] eCW1 ([facility]) Body weight 92.08 kg 92.08 kg eCW1 ([facility]) Body height 66 [in_i] 66 [in_i] eCW1 ([facility]) Body mass index (BMI) [Ratio] 32.765 kg/m2 32.7 65 kg/m2 eCW1 ([facility]) Systolic blood pressure 120 mm[Hg] 120 mm[Hg] e CW1 ([facility]) Diastolic blood pressure 78 mm[Hg] 78 mm[Hg] eCW1 ([facility]) Patient Treatment Plan of Care Planned Activity Planned Date Details Description Data Source (s) Omeprazole 20 MG Delayed Release Oral Capsule 01/14/2021 12:00:00 A M EDT eCW1 ([facility]) Omeprazole 20 MG Delayed Release Oral Capsule 01/14/2021 12:00:00 A M EDT eCW1 ([facility]) Omeprazole 20 MG Delayed Release Oral Capsule 01/14/2021 12:00:00 A M MONICAT ChengW1 ([facility])
--- OUTSIDE RECORDS SUMMARY | 2021-03-09 13:39 | CCD | Continuity of Care Document ---
Author Author Nelia SOOD DO Organization Unknown Address [address] [place] [address] Phone [phone] Care Team Providers Care Account Support Analyst Name Role Phone Steffany Aviles P.A.-C. AUTM [phone] Problems Description No Information Available Social [...] F Results Description No Information Available Procedures Date Code Description Status 02/08/2021 26345 Office/Outpatient [facility] 30 -44 Minutes Completed 02/08/2021 97743 FX Metatarsal W/O Manipulation C ompleted Medical Devices Description No Information Available Encounters Type Date Location Provider Dx Diagnosis Office Visit 02/08/2021 8:00a [facility] Audra Sood DO S92.354A Nondisp fx of fifth metatarsal bone, rig ht foot, init Assessments Date Code Description Provider 02/08/2021 S92.354A Nondisplaced fractur e of fifth metatarsal bone, right foot, initial encounter for closed fracture Norris Sood DO Plan of Treatment 02/08/2021 - Norris Sood DO* S92.354A Nondisplaced fracture of fifth metatarsal bone, right foot, initial encounter for closed fracture* Comments: * 1. Weightbearing as tolerated cam boot, stiff sole2. Follow-up 3 weeks repeat x-rays3. Work note provided off work until further notice Functional Status Description No Information Available Mental Status Description No Information Available Referrals Description No Information Available
[2021-03-09] MEDS ORDERED: HOME MED LIST COMPLETE! XX SCH (14:25)
[2021-03-09] MEDS ORDERED: LACTATED RINGER'S 1000 ML IV STA (14:39)
[2021-03-09] MEDS ORDERED: LIDOCAINE 1% MDV 20ML VIAL INFIL PRN (14:40)
[2021-03-09] MEDS ORDERED: TRANEXAMIC ACID INJection 1,000 MG in NS 100 ML IV PRN (14:40)
[2021-03-09] MEDS ORDERED: CARBOPROST TROMETHAMINE 250 MCG/ML AMP IM PRN (14:40)
[2021-03-09] MEDS ORDERED: METHYLERGONOVINE MALEATE 0.2 MG/ML VIAL (J2210) IM PRN (14:40)
[2021-03-09] MEDS ORDERED: OXYTOCIN DRIP 30 UNITS in IV 1 EA IV PRN (14:40)
[2021-03-09] MEDS ORDERED: miSOPROStol 50MCG 1/2 TABLET PO ONE ×2 (14:40→20:15)
[2021-03-09] MEDS ORDERED: LR 1,000 ML IV SCH (14:40)
--- NOTE | 2021-03-09 14:45 | HPEPDOC ---
Obstetrical History & Physical General Date of Admission Mar 09, 2021 at 13:35 Primary Care Physician: ELISA COVINGTON CNM History of Present Illness Nelia is a 26-year-old female who is a at 38.4 weeks gestation with an AMBER of 03/19/21 based off of her LMP and consistent with her first trimester ultrasound. She initiated care in her first trimester with [facility]. Her has been complicated by obesity with a starting BMI of 33 and one elevated BP in the office today. She was sent over from the office by Dr. Ng for IOL due to an elevated BP. She reports active movement. Denies leaking of fluid, contractions or vaginal bleeding. Chief Complaint: Induction of labor Information Provided By: Patient Age: 26 : 2 Term: 0 Pre-term: 0 Abortions: 1 Livin Care Care: Good Care Dating Final EDC: Mar 19, 2021 Final EDC by: LMP EGA at Admission: 38.4 Antepartum Course Height (inches): 66 Pre- weight (lbs.): 203 Admission Weight (lbs.): 241 Change in Weight (lbs.): 42 Past Medical History [employer] History: Spontaneous Past Medical History Medical History Migraines Asthma recurrent UTIs C.Diff. Surgical History: Tonsilectomy Family History Significant Family History: Asthma, Diabetes, Hypertension Social History Social history Works for [employer] Marital Status: Family situation: Spouse/partner home Psychosocial History: No pertinent psych hx * Smoker: non-smoker Alcohol: Denies Drugs: denies Abuse Violence Screening Have you been hit/kicked/slapp: No Have you been sexually assault: No Allergies Coded Allergies: No Known Allergies (Unverified , 08/09/19) Medications Scheduled Omeprazole (Omeprazole) 10 Mg Capsule., 10 MG PO DAILY No122/Iron/Folic Acid ( Multi Tablet) 1 Each Tablet, 1 TAB PO DAILY Physical Examination Physical Examination GENERAL: Alert and oriented times three. ABDOMEN: Gravid and non-tender to touch. FETUS: Is vertex (VTX) by sterile vaginal examination (SVE), fetus is vertex (VTX) by Nick. LUNGS: Respiratory rate is regular without use of accessory muscles. EXTREMITIES: No edema. No clonus. . Vital Signs/I&O Vital Signs Date Time Temp Pulse Resp B/P (MAP) Pulse Ox O2 Delivery O2 Flow Rate FiO2 03/09/21 14:31 115 16 120/77 (91) 03/09/21 14:05 96.8 Room Air Laboratory Data 24H LABS Laboratory Tests 2 03/09/21 13:41: Serology Scanned Report Hepatitis B Testing Item Value Date Time Creatinine 0.50 MG/DL L 03/09/21 1625 Glomerular Filtration Rate > 60.0 03/09/21 1625 Uric Acid 3.7 MG/DL 03/09/21 1625 Total Bilirubin 0.2 MG/DL 03/09/21 1625 Alanine Aminotransferase (ALT/SGPT) 16 U/L 03/09/21 1625 Aspartate Amino Transf (AST/SGOT) 22 U/L 03/09/21 1625 Lactate Dehydrogenase 292 U/L H 03/09/21 1625 Item Value Date Time Urine Random Creatinine 25.3 MG/DL 03/09/21 1550 Urine Random Total Protein 7.0 MG/DL 03/09/21 1550 Item Value Date Time Coronavirus (COVID-19)(PCR) NEGATIVE 03/09/21 1559 CBC/BMP Item Value Date Time White Blood Count 12.8 10^3/uL H 03/09/21 1549 Red Blood Count 4.08 10^6/uL 03/09/21 1549 Hemoglobin 11.5 g/dl L 03/09/21 1549 Hematocrit 35.3 % L 03/09/21 1549 Mean Corpuscular Volume 86.5 fl 03/09/21 1549 Mean Corpuscular Hemoglobin 28.2 pg 03/09/21 1549 Mean Corpuscular Hemoglobin Concent 32.6 g/dl 03/09/21 1549 Red Cell Distribution Width 13.0 % 03/09/21 1549 Platelet Count 322 10^3/uL 03/09/21 1549 Nucleated Red Blood Cells % (auto) 0.0 % 03/09/21 1549 Pertinent Laboratoy Data Blood Type: O+ RBC Antibody Screen: Negative HIV: Negative Hepatitis B: Negative Hepatitis C: Negative Rapid Plasma Reagin: Nonreactive Rubella: Immune Chlamydia/Gonorrhea: Negative Group B Streptococcus: Negative Glucose Tolerance Test: 118 Vaginal Examination Dilation: 2cm (exam done in office) Effacement: 80% Station: -1 Cervical Consistency: Medium Cervical Position: Posterior Presentation: Cephalic presentation Assessment Heart Rate (FHR): 130 Variability: Moderate Accelerations: Positive Decelerations: None Tocometer Contractions: Yes Frequency: irregular Multi-drug resistant Organism: No history of MDRO Assessment/Plan Assessment IUP at 38.4 weeks gestation GBS negative elevated BP in office at term Category I FHR tracing Plan Admit to labor and delivery for induction of labor per Dr. Ng. Preeclamptic labs ordered. OOB ad yuliet. Diet: regular now then clears when IV Pitocin is started. Group B Streptococcus (GBS) negative. Labs and intravenous (IV) per unit protocol. Counseled on Cytotec, soto bulb and IV Pitocin and induction of labor. Anesthesia consult per patient's request. Lactated Ringers (LR): Bolus 800 mL prior to epidural then at 125 mL/hr. Anticipate cervical ripening. C-S as appropriate. ELISA COVINGTON CNM Mar 09, 2021 14:45
[2021-03-09 16:00] LABS: HEMATOCRIT 35.3 % (36.0-47.0); HEMOGLOBIN 11.5 g/dl (12.0-15.5); MEAN CORPUSCULAR HEMOGLOBIN 28.2 pg (27.0-33.0); MEAN CORPUSCULAR HGB CONC 32.6 g/dl (32.0-36.5); MEAN CORPUSCULAR VOLUME 86.5 fl (80.0-96.0); PLATELET COUNT, AUTOMATED 322 10^3/uL (150-450); RED BLOOD COUNT 4.08 10^6/uL (4.00-5.40); WHITE BLOOD COUNT 12.8 10^3/uL (4.0-10.0)
[2021-03-09 16:29] LABS: CREATININE,RANDOM URINE 25.3 MG/DL
[2021-03-09 17:50] LABS: ALT/SGPT 16 U/L (12-78); BILIRUBIN,TOTAL 0.2 MG/DL (0.2-1.0); GLOMERULAR FILTRATION RATE > 60.0 (>60); LDH LACTATE DEHYDROGENASE 292 U/L (84-246); URIC ACID 3.7 MG/DL (2.6-6.0)
[2021-03-10] VITALS (21 sets, daily range): BP systolic 99–117; BP diastolic 58–76
[2021-03-10] MEDS ORDERED: miSOPROStol 50MCG 1/2 TABLET PO ONE ×2 (00:40→11:00)
[2021-03-10] MEDS ORDERED: OXYTOCIN DRIP 30 UNITS in IV 1 EA IV SCH (13:30)
[2021-03-11] VITALS (31 sets, daily range): BP systolic 85–131; BP diastolic 52–76
[2021-03-11] MEDS ORDERED: PROMETHAZINE INJ 25 MG/ML VIAL (J2550) IV ONE (01:15)
[2021-03-11] MEDS ORDERED: BUTORPHANOL 2 MG/ML INJ (J0595) IV ONE (01:15)
[2021-03-11] MEDS ORDERED: FENTANYL 2MCG/ML ROPIVACAINE 0.2% IN 0.9% NACL 100ML IVBAG As Ordered ONE (03:16)
[2021-03-11] MEDS ORDERED: FENTANYL/ROPIVACAINE/NACL BAG 100 ML EPIDURAL SCH (04:30)
[2021-03-11] MEDS ORDERED: EPIDURAL COMMENT XX SCH (04:30)
[2021-03-11] MEDS ORDERED: diphenhydrAMINE 50MG/ML VIAL (J1200) IV PRN (04:30)
[2021-03-11] MEDS ORDERED: NALOXONE INJ 0.4MG/1ML VIAL (J2310 PER 1MG) IV PRN (04:30)
[2021-03-11] MEDS ORDERED: LACTATED RINGER'S 1000 ML IV PRN (04:30)
[2021-03-11] MEDS ORDERED: ePHEDrine SULFATE 25 MG/5 ML(5MG/ML) SYRINGE IV PRN (04:30)
[2021-03-11] MEDS ORDERED: REFRIGERATOR IV KEYS XX PRN (04:30)
[2021-03-11] MEDS ORDERED: ONDANSETRON 4MG/2ML VIAL IV PRN (04:30)
[2021-03-11] MEDS ORDERED: EPIDURAL/PCA KEYS XX PRN (04:30)
--- NOTE | 2021-03-11 10:19 | IPNPDOC ---
Text Note Date of Service The patient was seen on 03/11/21. NOTE Progress Comfortable with epidural Cat I tracing UC Q 1.5-2 minutes SVE C/C/+1 Decrease pitocin, allow to labor down. Commence pushing 30 minutes or per pt report of urge. VS,Fishbone, I+O VS, Fishbone, I+O Vital Signs Date Time Temp Pulse Resp B/P (MAP) Pulse Ox O2 Delivery O2 Flow Rate FiO2 03/11/21 09:07 100 17 112/68 (83) 03/11/21 07:19 96.8 03/10/21 09:05 96 03/09/21 19:02 Room Air I&O- Last 24 Hours up to 6 AM 03/11/21 06:00 Intake Total 1240 ml Balance 1240 ml Gloria Toscano CNM Mar 11, 2021 10:19
[2021-03-11 13:31] LABS: CORD GAS ABE A -5.8; CORD GAS ABE V -4.4; CORD GAS HCO3 A 23.2 MEQ/L; CORD GAS HCO3 V 23.3 MEQ/L; CORD GAS O2 SAT A 48.3 %; CORD GAS O2 SAT V 48.2 %; CORD GAS PCO2 A 60.2 mmHg; CORD GAS PCO2 V 52.8 mmHg; CORD GAS PH A 7.204 UNITS; CORD GAS PH V 7.263 UNITS; CORD GAS PO2 A 22.8 mmHg; CORD GAS PO2 V 20.6 mmHg; CORD GAS SBC A 18.7 MEQ/L; CORD GAS SBC V 19.7 MEQ/L; CORD GAS TCO2 A 25.1 MEQ/L; CORD GAS TCO2 V 24.9 MEQ/L
[2021-03-11] MEDS ORDERED: MOM 30ML SUSPENSION UDC PO PRN (13:40)
[2021-03-11] MEDS ORDERED: METHYLERGONOVINE MALEATE 0.2 MG TAB PO PRN (13:40)
[2021-03-11] MEDS ORDERED: OXYTOCIN DRIP 30 UNITS in IV 1 EA IV SCH (13:40)
[2021-03-11] MEDS ORDERED: IBUPROFEN 600MG TAB PO PRN (13:40)
[2021-03-11] MEDS ORDERED: MEASLES,MUMPS,RUBELLA VACCINE INJ (MMR-II) (90707) SC SCH (13:40)
[2021-03-11] MEDS ORDERED: ACETAMINOPHEN 500 MG TAB PO PRN (13:40)
[2021-03-11] MEDS ORDERED: DIBUCAINE 1% OINTMENT 30GM TOP PRN (13:40)
[2021-03-11] MEDS ORDERED: DOCUSATE SODIUM 100MG CAPSULE PO PRN (13:40)
[2021-03-11] MEDS ORDERED: RHOGAM 300 MCG (1500 IU) INJ (J2790) IM SCH (13:40)
[2021-03-11] MEDS ORDERED: ACETAMINOPHEN TAB 650MG DOSE (2X325MG) PO PRN (13:40)
[2021-03-11] MEDS ORDERED: ANUSOL HC CREAM 30GM TOP PRN (13:40)
--- NOTE | 2021-03-11 13:50 | DNPDOC ---
[facility] Delivery Note Delivery Note DATE OF DELIVERY: 03/11/2021 PREDELIVERY DIAGNOSIS: 38+6/7 weeks' gestation and labor. POST DELIVERY DIAGNOSIS: Delivered. PROCEDURE: Spontaneous vaginal delivery. PROVIDER: lGoria Toscano CNM ANESTHESIA: Epidural ESTIMATED BLOOD LOSS: 400 mL. FINDINGS: 8 pound 1 ounce, 3670gm male infant, Score 8/9, no nuchal cord. DELIVERY SUMMARY: Patient is a 26-year-old 2 now para 1-0-0-1 who was admitted to labor and delivery for induction of labor due to elevated blood pressure x 1 in the office. She received misoprostol and pitocin. An epidural was utilized for labor coping. Spontaneous rupture of membranes @ 0120, clear fluid. Fully dilated 1014. Viable male child delivered MONICA, restituted to ROP @ 1313. Spontaneous respirations with stimulation, transitioned on maternal abdomen. Cord gases obtained, arterial 7.204, BE -5.8; venous 7.263, BE -4.4. Cord doubly clamped and cut by FOB under my direction once pulsations ceased. Apgars 8/9. Placenta villalta, intact with 3v cord @ 1321. Fundus firmed with massage and premixed IV pitocin bolus. EBL 400ml. 1st degree perineal laceration repaired in the usual fashion with 3-0 vicryl rapide. Sponge, sharp and instrument count correct at close of procedure. Gloria Toscano CNM Mar 11, 2021 13:50
[2021-03-11] MEDS: IBUPROFEN 800 MG TAB PO PRN (16:22)
[2021-03-12 06:00] VITALS: BP 106/59
[2021-03-12] MEDS: IBUPROFEN 800 MG TAB PO PRN ×2 (08:28→23:57)
[2021-03-12 08:49] VITALS: BP 116/87
[2021-03-12] MEDS: PRENATAL VITAMINS CHEWABLE TABLET PO SCH (08:58)
[2021-03-12] MEDS ORDERED: INFLUENZA QUADRIVALENT PF VACCINE 0.5ML SYRINGE IM ONE (09:00)
[2021-03-12 17:59] VITALS: BP 112/68
[2021-03-13 06:00] VITALS: BP 118/58
[2021-03-13] MEDS: PRENATAL VITAMINS CHEWABLE TABLET PO SCH (07:56)
[2021-03-13] MEDS: IBUPROFEN 800 MG TAB PO PRN (07:56)
[2021-03-13] MEDS ORDERED: IBUP-1022 PO (08:03)
[2021-03-13] MEDS ORDERED: COLA100C5 PO (08:03)
[2021-03-13] MEDS ORDERED: ACET-683 PO (08:03)
== END 2021-03-13 15:15 | disposition home or self-care (01) | DRG 560 ==
LOC: M LDI 13:35 → M OBS 03-11 16:13
PROVIDERS: ADMIT Advanced Practice Midwife; ATTEND Advanced Practice Midwife
PROC: 3E0P7GC Introduction of Other Therapeutic Substance into Female Reproductive, Via Natural or Artificial Opening (ICD-10-PCS; 2021-03-09)
PROC: 10E0XZZ Delivery of Products of Conception, External Approach (ICD-10-PCS; principal; 2021-03-11)
PROC: 0HQ9XZZ Repair Perineum Skin, External Approach (ICD-10-PCS; 2021-03-11)
DX: O99.892 Other specified diseases and conditions complicating childbirth (principal); E66.9 Obesity, unspecified; R03.0 Elevated blood-pressure reading, without diagnosis of hypertension; Z3A.38 38 weeks gestation of pregnancy; O99.214 Obesity complicating childbirth; Z37.0 Single live birth; O70.0 First degree perineal laceration during delivery

== ENCOUNTER → 2021-03-29 | Outpatient (CLI) | payer BC, OTHER ==
[~2021-03-29] MED LIST changes: +ACET-683 PO; +COLA100C5 PO; +IBUP-1022 PO
--- NOTE | 2021-03-29 14:25 | REP ---
INDICATION: RT FOOT FX. COMPARISON: 02/05/2021 TECHNIQUE: AP, lateral, oblique views of the right foot FINDINGS: Oblique fracture of the 5th metatarsal bone demonstrates callus formation. Remainder of the examination is normal. IMPRESSION: Healing oblique fracture of the 5th metatarsal bone. <Electronically signed by Clifton Nation > 03/29/21 0410
== END ==
LOC: M SOG 14:06
PROVIDERS: ATTEND Orthopaedic Surgery
DX: S92.351D Displaced fracture of fifth metatarsal bone, right foot, subsequent encounter for fracture with routine healing (principal); W18.30XD Fall on same level, unspecified, subsequent encounter; Y92.009 Unspecified place in unspecified non-institutional (private) residence as the place of occurrence of the external cause

== ENCOUNTER → 2022-02-02 | Outpatient (REF) | payer OTHER ==
[2022-02-02 17:16] LABS: PERCENT SATURATION 19.9 % (13.2-45.0)
== END ==
LOC: M SFHCADAM 11:55
PROVIDERS: ATTEND Physician Assistant
DX: R30.0 Dysuria (principal); D64.9 Anemia, unspecified

== ENCOUNTER → 2022-06-20 | Outpatient (CLI) | payer BC, OTHER ==
[2022-06-20 16:02] LABS: HEMATOCRIT 41.2 % (36.0-47.0); HEMOGLOBIN 13.4 g/dl (12.0-15.5); MEAN CORPUSCULAR HGB CONC 32.5 g/dl (32.0-36.5); MEAN CORPUSCULAR VOLUME 89.2 fl (80.0-96.0); PLATELET COUNT, AUTOMATED 417 10^3/uL (150-450); RED BLOOD COUNT 4.62 10^6/uL (4.00-5.40); WHITE BLOOD COUNT 8.6 10^3/uL (4.0-10.0)
[2022-06-20 16:05] LABS: LDH LACTATE DEHYDROGENASE 186 U/L (120-246)
[2022-06-20 16:06] LABS: ALT/SGPT 14 U/L (7.0-40); AST/SGOT 17 U/L (<34); BILIRUBIN,TOTAL 0.5 MG/DL (0.3-1.2); GLOMERULAR FILTRATION RATE > 60.0 (>60)
[2022-06-20 16:28] LABS: CREATININE,RANDOM URINE 25.2 MG/DL
[2022-06-20 16:29] LABS: TOTAL PROTEIN,RANDOM URINE < 6.0 MG/DL (0.0-14.0)
[2022-06-20 16:34] LABS: HIV 1&2 SCREEN CENTAUR NEGATIVE (NEGATIVE)
[2022-06-20 16:43] LABS: URIC ACID 3.8 MG/DL (3.1-7.8)
[2022-06-20 18:07] LABS: GC DNA AMPLIFICATION NEGATIVE (NEGATIVE)
== END ==
LOC: M PLALAB 11:05
PROVIDERS: ATTEND Advanced Practice Midwife
DX: Z34.91 Encounter for supervision of normal pregnancy, unspecified, first trimester (principal); Z3A.00 Weeks of gestation of pregnancy not specified

== ENCOUNTER → 2022-08-23 | Outpatient (CLI) | payer BC, OTHER | LOC: M WHC 10:56 | PROVIDERS: ATTEND Advanced Practice Midwife | DX: Z34.82 Encounter for supervision of other normal pregnancy, second trimester (principal) ==

== ENCOUNTER → 2022-09-29 | Outpatient (CLI) | payer BC, OTHER ==
[2022-09-29 15:15] LABS: HEMATOCRIT 38.1 % (36.0-47.0); HEMOGLOBIN 12.2 g/dl (12.0-15.5); MEAN CORPUSCULAR VOLUME 90.5 fl (80.0-96.0); PLATELET COUNT, AUTOMATED 337 10^3/uL (150-450); RED BLOOD COUNT 4.21 10^6/uL (4.00-5.40)
[2022-09-29 15:44] LABS: TOTAL PROTEIN,RANDOM URINE 13.7 MG/DL (0.0-14.0); URIC ACID 3.3 MG/DL (3.1-7.8)
[2022-09-29 15:46] LABS: LDH LACTATE DEHYDROGENASE 168 U/L (120-246)
[2022-09-29 15:47] LABS: ALT/SGPT 15 U/L (7.0-40); AST/SGOT < 8 U/L (<34); BILIRUBIN,TOTAL 0.3 MG/DL (0.3-1.2); CREATININE FOR GFR 0.53 MG/DL (0.55-1.30); GLOMERULAR FILTRATION RATE > 60.0 (>60); GLUCOSE CHALLENGE TEST 1 HOUR 76 MG/DL (LESS THAN 140)
== END ==
LOC: M PLALAB 08:51
PROVIDERS: ATTEND Advanced Practice Midwife
DX: Z34.82 Encounter for supervision of other normal pregnancy, second trimester (principal)

== ENCOUNTER 2022-12-01 16:19 | Outpatient (CLI) | payer BC, OTHER ==
[~2022-12-01] VITALS: Ht 170.2 cm; Wt 108.4 kg
[2022-12-01 16:34] VITALS: BP 126/69
[2022-12-01] MEDS ORDERED: HOME MED LIST COMPLETE! XX SCH (16:40)
== END 2022-12-01 17:52 | disposition home or self-care (01) ==
LOC: M LDO 16:19
PROVIDERS: ATTEND Advanced Practice Midwife
DX: O36.8130 Decreased fetal movements, third trimester, not applicable or unspecified (principal); O99.513 Diseases of the respiratory system complicating pregnancy, third trimester; J45.909 Unspecified asthma, uncomplicated; Z86.32 Personal history of gestational diabetes; Z3A.34 34 weeks gestation of pregnancy
CPT/HCPCS: 59025; 76815; G0463

== ENCOUNTER → 2022-12-06 | Outpatient (REF) | payer BC, OTHER | LOC: M SFHCWAGY 17:05 | PROVIDERS: ATTEND Obstetrics & Gynecology | DX: Z34.93 Encounter for supervision of normal pregnancy, unspecified, third trimester (principal) ==

== ENCOUNTER 2023-01-03 12:34 | Inpatient (IN) | payer BC, OTHER ==
[~2023-01-03] VITALS: Ht 167.6 cm; Wt 109.1 kg
[2023-01-03] VITALS (34 sets, daily range): BP systolic 89–134; BP diastolic 58–78
[2023-01-03] MEDS ORDERED: HOME MED LIST COMPLETE! XX SCH (13:00)
[2023-01-03] MEDS ORDERED: OXYTOCIN DRIP 30 UNITS in IV 1 EA IV SCH (13:30)
[2023-01-03] MEDS ORDERED: TRANEXAMIC ACID INJection 1,000 MG in NS 100 ML IV PRN (13:30)
[2023-01-03] MEDS ORDERED: LIDOCAINE 1% MDV 20ML VIAL INFIL PRN (13:30)
[2023-01-03] MEDS ORDERED: OXYTOCIN INJ 10UNITS/ML 1ML VIAL IM PRN (13:30)
[2023-01-03] MEDS ORDERED: METHYLERGONOVINE MALEATE 0.2MG/ML 1ML VIAL IM PRN (13:30)
[2023-01-03] MEDS ORDERED: CARBOPROST TROMETHAMINE 250 MCG/ML AMP IM PRN (13:30)
[2023-01-03] MEDS ORDERED: OXYTOCIN DRIP 30 UNITS in IV 1 EA IV PRN ×4 (13:30)
[2023-01-03 13:59] LABS: HEMATOCRIT 36.8 % (36.0-47.0); HEMOGLOBIN 11.9 g/dl (12.0-15.5); MEAN CORPUSCULAR HGB CONC 32.3 g/dl (32.0-36.5); MEAN CORPUSCULAR VOLUME 86.6 fl (80.0-96.0); PLATELET COUNT, AUTOMATED 293 10^3/uL (150-450); RED BLOOD COUNT 4.25 10^6/uL (4.00-5.40); WHITE BLOOD COUNT 11.5 10^3/uL (4.0-10.0)
[2023-01-03] MEDS: LR 1,000 ML IV SCH ×2 (14:25→21:13)
[2023-01-03] MEDS ORDERED: EPIDURAL/PCA KEYS XX PRN (20:15)
[2023-01-03] MEDS ORDERED: ONDANSETRON 4MG 2ML VIAL IV PRN (20:15)
[2023-01-03] MEDS ORDERED: NALOXONE INJ 0.4MG/1ML VIAL IV PRN (20:15)
[2023-01-03] MEDS ORDERED: LR 500 ML IV PRN (20:15)
[2023-01-03] MEDS ORDERED: diphenhydrAMINE 50MG/ML VIAL IV PRN (20:15)
[2023-01-03] MEDS ORDERED: FENTANYL/ROPIVACAINE/NACL BAG 100 ML EPIDURAL SCH (20:15)
[2023-01-03] MEDS ORDERED: ePHEDrine SULFATE 25 MG/5 ML(5MG/ML) SYRINGE IVP PRN (20:15)
[2023-01-03] MEDS ORDERED: IBUPROFEN 800 MG TAB PO PRN (23:00)
[2023-01-03] MEDS ORDERED: DIBUCAINE 1% OINTMENT 30GM TOP PRN (23:00)
[2023-01-03] MEDS ORDERED: METHYLERGONOVINE MALEATE 0.2 MG TAB PO PRN (23:00)
[2023-01-03] MEDS ORDERED: ACETAMINOPHEN TAB 650MG DOSE (2X325MG) PO PRN (23:00)
[2023-01-03] MEDS ORDERED: ACETAMINOPHEN 500 MG TAB PO PRN (23:00)
[2023-01-03] MEDS ORDERED: RHOGAM 300MCG (1500IU) INJ IM SCH (23:00)
[2023-01-03] MEDS ORDERED: DOCUSATE SODIUM 100MG CAPSULE PO PRN (23:00)
[2023-01-03] MEDS ORDERED: IBUPROFEN 600MG TAB PO PRN (23:00)
[2023-01-04 00:59] VITALS: BP 122/67; O2SAT 97
[2023-01-04 06:00] VITALS: BP 108/55; O2SAT 99
[2023-01-04] MEDS: PRENATAL VITAMINS CHEWABLE TABLET PO SCH (08:57)
[2023-01-04 18:00] VITALS: BP 113/62; O2SAT 95
[2023-01-05 05:59] VITALS: BP 116/67; O2SAT 98
[2023-01-05] MEDS: PRENATAL VITAMINS CHEWABLE TABLET PO SCH (08:02)
[2023-01-05] MEDS ORDERED: MEASLES,MUMPS,RUBELLA VACCINE INJ (MMR-II) SC.IMMUN ONE (09:00)
== END 2023-01-05 11:50 | disposition home or self-care (01) | DRG 560 ==
LOC: M LDO 12:34 → M LDI 13:19 → M OBS 01-04 00:58
PROVIDERS: ADMIT Advanced Practice Midwife; ATTEND Advanced Practice Midwife
PROC: 10E0XZZ Delivery of Products of Conception, External Approach (ICD-10-PCS; principal; 2023-01-03)
PROC: 3E033VJ Introduction of Other Hormone into Peripheral Vein, Percutaneous Approach (ICD-10-PCS; 2023-01-03)
PROC: 0HQ9XZZ Repair Perineum Skin, External Approach (ICD-10-PCS; 2023-01-03)
DX: O42.90 Premature rupture of membranes, unspecified as to length of time between rupture and onset of labor, unspecified weeks of gestation (principal); Z37.0 Single live birth; Z3A.39 39 weeks gestation of pregnancy; O70.0 First degree perineal laceration during delivery

== ENCOUNTER → 2023-05-07 | Outpatient (REF) | LOC: M EMP 09:09 | PROVIDERS: ATTEND Family Medicine | DX: Z11.52 Encounter for screening for COVID-19 (principal) ==